=== PATIENT | male | born 1940 | race Caucasian/White ===

== ENCOUNTER → 2019-04-13 12:13 | Outpatient (CLI) | payer MEDICARE, SELFPAY ==
--- NOTE | 2019-04-13 12:17 | DI.RAD.S_ITS ---
PROCEDURE: XR CHEST 2V INDICATIONS: cough TECHNIQUE: 2 views of the chest were acquired. COMPARISON: None. FINDINGS: Surgical changes and devices: None. Lungs and pleura: Small parenchymal opacity in the right infrahilar region of the right lower lobe. Mild horizontal strandy change at the left lateral lung base. No pleural effusion or pneumothorax. Mediastinum: Mediastinal contours are normal. Heart size is normal. Bones and chest wall: No suspicious bony abnormalities. Soft tissues appear unremarkable. IMPRESSION: Findings suspicious for small right lower lobe infiltrate without effusion. Probable scarring left lateral lower left lung. Dictated by: Soraya Cadet M.D. on 04/13/2019 at 13:23 Approved by: Soraya Cadet M.D. on 04/13/2019 at 13:25
== END ==
PROVIDERS: Visit Provider Physician Assistant
DX: R05 Cough (principal)
CPT/HCPCS: 71046

== ENCOUNTER 2019-04-13 13:06 | Emergency (ER) | payer MEDICARE, SELFPAY ==
[2019-04-13] VITALS (8 sets, daily range): BP systolic 144–163; BP diastolic 72–81; PULSE 51–57; RESP 12–18; TEMP 36.3; O2SAT 94–98; BMI 31.6
[2019-04-13 13:46] LABS: Add Manual Diff / Slide Review NO; Basophils Absolute Auto 0 /uL (0-100); Basophils Percent Auto 0.7 % (0-2); Eosinophils Absolute Auto 200 /uL (0-450); Eosinophils Percent Auto 3.2 % (2-4); Hematocrit 43.5 % (41-53); Hemoglobin 14.4 g/dL (13.5-17.5); Lymphocytes Absolute Auto 1000 /uL (1100-4500); Lymphocytes Percent Auto 14.8 % (25-40); Mean Corpuscular HGB Conc 33.1 % (30-36); Mean Corpuscular Hemoglobin 31.2 PG (26-34); Mean Corpuscular Volume 94.3 fL (80-100); Monocytes Absolute Auto 1000 /uL (0-900); Monocytes Percent Auto 14.7 % (3-14); Neutrophils Absolute Auto 4300 /uL (1500-7000); Neutrophils Percent Auto 66.6 % (50-75); Platelet Count 199 X10^3/uL (150-400); Red Blood Cell Count 4.62 X10^6/uL (4.5-5.9); Red Cell Distribution Width 15.1 % (11.6-14.8); White Blood Cell Count 6.5 X10^3/uL (4.5-11.0)
[2019-04-13 13:59] LABS: Alanine Aminotransferase 42 IU/L (21-72); Albumin 3.8 g/dL (3.5-5.0); Albumin Globulin Ratio 1.3 (1.0-2.8); Alkaline Phosphatase 75 U/L (38-126); Aspartate Aminotransferase 33 IU/L (17-59); BUN Creatinine Ratio 17.5 (6-22); Bilirubin Total 1.2 mg/dL (0.2-1.3); Blood Urea Nitrogen 14 mg/dL (9-20); Carbon Dioxide 26 mmol/L (22-32); Chloride 107 mmol/L (98-107); Creatine Kinase 67 U/L (55-170); Estimated Glomerular Filt Rate > 60.0 mL/min (>60); Glucose 93 mg/dL (80-110); HEMOLYSIS < 15 (0-50); Potassium 3.8 mmol/L (3.4-5.1); Sodium 140 mmol/L (137-145); Total Protein 6.8 g/dL (6.3-8.2)
[2019-04-13 14:11] LABS: Troponin I < 0.012 ng/mL (0.01-0.034)
[2019-04-13 14:19] LABS: D Dimer 407 ng/mL (<230)
[2019-04-13] MEDS: ALBUTEROL 2.5 MG/3 ML NEB (ADULT) INH (14:23)
[2019-04-13 14:28] LABS: Lactate (Lactic Acid) 0.9 mmol/L (0.7-2.1)
[2019-04-13 14:32] LABS: B Type Natriuretic Peptide 259 (<100)
--- NOTE | 2019-04-13 15:11 | DI.US.S_ITS ---
PROCEDURE: US PERIPH VENOUS LOW EXTREM LT INDICATIONS: SWELLING, HX BLOOD CLOT TECHNIQUE: Real-time imaging, as well as color and pulse Doppler interrogation, were performed of the lower extremity deep veins from the inguinal ligament to the popliteal fossa. COMPARISON: None. FINDINGS: The common femoral, femoral and popliteal veins are normally compressible, and free of intraluminal thrombus. Color and pulse Doppler demonstrate normal phasic intraluminal flow. There is normal augmentation response to distal compression maneuver. IMPRESSION: No DVT in the left lower extremity. Dictated by: Soraya Cadet M.D. on 04/13/2019 at 16:44 Approved by: Soraya Cadet M.D. on 04/13/2019 at 16:44
--- NOTE | 2019-04-13 16:08 | ED_ITS ---
HPI - SOB/Dyspnea <ROMANA Dejesus - Last Filed: 04/13/19 18:57> General Chief Complaint: Shortness of Breath/Dyspnea Stated Complaint: Resp. distress Time Seen by Provider: 04/13/19 13:22 Source: patient and family Mode of arrival: ambulatory Limitations: no limitations History of Present Illness The patient is an 78-year-old male with history of hypertension and high cholesterol who presents with a chief complaint of shortness of breath. the patient has been complaining of progressive shortness of breath and dry cough. He states his chest hurts when he takes deep breaths or coughs. He has been traveling for the last month, has traveled to 1000 miles. He does have a history of asthma, and has been trying albuterol which has not helped. He denies any fevers nausea vomiting diarrhea. He endorses slight swelling in his left lower leg, worse than his right. He was seen at the walk-in clinic, who triaged him to the emergency department after a chest x-ray was done. He denies any constant chest pain, states it is not get worse with activity. He states he wakes up, and is gasping for air at times. states they think he might have sleep apnea. He does have history of a blood clot, which occurred after a knee surgery. Related Data Home Medications Medication Instructions Recorded Confirmed amlodipine 10 mg tablet 10 mg PO DAILY 04/13/19 04/13/19 atorvastatin 40 mg tablet 40 mg PO BEDTIME 04/13/19 04/13/19 cholecalciferol (vitamin D3) 2,000 2,000 unit PO DAILY 04/13/19 04/13/19 unit capsule dutasteride 0.5 mg capsule 0.5 mg PO DAILY 04/13/19 04/13/19 metoprolol succinate ER 200 mg 200 mg PO DAILY 04/13/19 04/13/19 tablet,extended release 24 hr omeprazole 40 mg capsule,delayed 40 mg PO DAILY 04/13/19 04/13/19 release Previous Rx's Medication Instructions Recorded doxycycline hyclate 100 mg PO BID #20 cap 04/13/19 Allergies Allergy/AdvReac Type Severity Reaction Status Date / Time No Known Drug Allergies Allergy Verified 04/13/19 13:21 Review of Systems <ROMANA Dejesus - Last Filed: 04/13/19 18:57> Review of Systems GENERAL: Denies chills, fatigue, malaise, fever, sweats. HEENT: Denies sinus pain, ear pain, sore throat, difficulty swallowing, dizziness. RESPIRATORY: See HPI CARDIOVASCULAR: Denies chest pain, palpitations, orthopnea, edema, GASTROINTESTINAL: See HPI : Denies dysuria, frequency, incontinence, hematuria, urinary retention. MUSCULOSKELETAL: See HPI SKIN: Denies rash, skin lesions, or other NEUROLOGIC: Denies weakness, headache, numbness, change in speech, confusion, seizures, incoordination. PSYCHIATRIC: No concerning psychosocial issues. 12 point review of systems is negative except for those stated above PFSH <ROMANA Dejesus - Last Filed: 04/13/19 18:57> Medical History (Updated 04/13/19 @ 18:50 by ROMANA Dejesus) Hypertension (Acute) Social History Smoking Status: Smoker, status unknown Social History Smoking Status: Smoker, status unknown Exam <ROMANA Dejesus - Last Filed: 04/13/19 18:57> Narrative Exam Narrative: GENERAL: This is a well-nourished, well-developed patient, no acute distress HEAD: Atraumatic. Normocephalic. No temporal or scalp tenderness. EYES: Pupils equal round and reactive. Extraocular motions intact. No scleral icterus. No injection or drainage. ENT: Nose without bleeding, purulent drainage or septal hematoma. Throat without erythema, tonsillar hypertrophy or exudate. Uvula midline. Airway patent. NECK: Trachea midline. No JVD or lymphadenopathy. Supple, nontender, no meningeal signs. CARDIOVASCULAR: Regular rate and rhythm without murmurs, gallops, or rubs. RESPIRATORY: Breath sounds equal bilaterally. No rales, or rhonchi. Slight wh eeze expiratory bilaterally on exam. Cough noted on exam. GASTROINTESTINAL: Abdomen soft, non-tender, nondistended. No hepato- splenomegaly, or palpable masses. No guarding. EXTREMITIES: No clubbing, cyanosis, or edema. No joint tenderness, effusion. Slight pedal edema noted bilaterally, left worse than right BACK: Nontender without deformity or crepitance. No flank tenderness. NEURO: AOx3. No gross cranial nerve deficit. Stable gait. Strength is equal upper and lower extremities bilaterally. SKIN: No rash or erythema. Initial Vital Signs Initial Vital Signs: Vital Signs Temperature 97.3 F L 04/13/19 13:21 Pulse Rate 53 L 04/13/19 13:21 Respiratory Rate 13 04/13/19 13:21 Blood Pressure 149/80 H 04/13/19 13:21 Pulse Oximetry 96 04/13/19 13:21 <Britney Harvey DO - Last Filed: 04/15/19 07:53> Initial Vital Signs Initial Vital Signs: Vital Signs Temperature 97.3 F L 04/13/19 13:21 Pulse Rate 53 L 04/13/19 13:21 Respiratory Rate 13 04/13/19 13:21 Blood Pressure 149/80 H 04/13/19 13:21 Pulse Oximetry 96 04/13/19 13:21 Course <IBETH DejesusBC - Last Filed: 04/13/19 18:57> Orders Ordered: Discontinued Medications Albuterol (Ventolin) 2.5 mg INH NOW ONE Stop: 04/13/19 14:22 Last Admin: 04/13/19 14:23 Dose: 2.5 mg Vital Signs - 8 hr 04/13/19 13:21 04/13/19 14:23 04/13/19 14:54 Temperature 97.3 F L Pulse Rate 53 L 51 L 57 L Respiratory Rate 13 12 16 Blood Pressure 149/80 H Blood Pressure [Left Arm] 144/77 H Pulse Oximetry 96 97 95 04/13/19 15:00 04/13/19 15:30 04/13/19 15:55 Temperature Pulse Rate 57 L 57 L 55 L Respiratory Rate 15 17 15 Blood Pressure Blood Pressure [Left Arm] 147/72 H 153/75 H 154/81 H Pulse Oximetry 97 94 95 04/13/19 16:25 04/13/19 17:00 Temperature Pulse Rate 56 L 55 L Respiratory Rate 15 18 Blood Pressure Blood Pressure [Left Arm] 163/75 H 154/73 H Pulse Oximetry 95 98 <DO Geetha Braun Last Filed: 04/15/19 07:53> Orders Ordered: Discontinued Medications Albuterol (Ventolin) 2.5 mg INH NOW ONE Stop: 04/13/19 14:22 Last Admin: 04/13/19 14:23 Dose: 2.5 mg Vital Signs - 8 hr 04/13/19 13:21 04/13/19 14:23 04/13/19 14:54 Temperature 97.3 F L Pulse Rate 53 L 51 L 57 L Respiratory Rate 13 12 16 Blood Pressure 149/80 H Blood Pressure [Left Arm] 144/77 H Pulse Oximetry 96 97 95 04/13/19 15:00 04/13/19 15:30 04/13/19 15:55 Temperature Pulse Rate 57 L 57 L 55 L Respiratory Rate 15 17 15 Blood Pressure Blood Pressure [Left Arm] 147/72 H 153/75 H 154/81 H Pulse Oximetry 97 94 95 04/13/19 16:25 04/13/19 17:00 Temperature Pulse Rate 56 L 55 L Respiratory Rate 15 18 Blood Pressure Blood Pressure [Left Arm] 163/75 H 154/73 H Pulse Oximetry 95 98 MDM - SOB/Dyspnea <ROMANA Dejesus - Last Filed: 04/13/19 18:57> Lab Data Result diagrams: 04/13/19 13:30 04/13/19 13:30 Lab Results 04/13/19 04/13/19 04/13/19 Range/Units 13:30 13:30 13:30 WBC 6.5 (4.5-11.0) X10^3/uL RBC 4.62 (4.5-5.9) X10^6/uL Hgb 14.4 (13.5-17.5) g/dL Hct 43.5 (41-53) % MCV 94.3 (80-100) fL MCH 31.2 (26-34) PG MCHC 33.1 (30-36) % RDW 15.1 H (11.6-14.8) % Plt Count 199 (150-400) X10^3/uL Neut % (Auto) 66.6 (50-75) % Lymph % (Auto) 14.8 L (25-40) % [place] % (Auto) 14.7 H (3-14) % Eos % (Auto) 3.2 (2-4) % Baso % (Auto) 0.7 (0-2) % Neut # (Auto) 4300 (1117-3964) /uL Lymph # (Auto) 1000 L (0062-6305) /uL [place] # (Auto) 1000 H (0-900) /uL Eos # (Auto) 200 (0-450) /uL Baso # (Auto) 0 (0-100) /uL D-Dimer (<230) ng/mL Sodium 140 (137-145) mmol/L Potassium 3.8 (3.4-5.1) mmol/L Chloride 107 (98-107) mmol/L Carbon Dioxide 26 (22-32) mmol/L BUN 14 (9-20) mg/dL Creatinine 0.80 (0.66-1.25) mg/dL Estimated GFR > 60.0 (>60) mL/min BUN/Creatinine Ratio 17.5 (6-22) Glucose 93 (80-110) mg/dL Lactate (0.7-2.1) mmol/L Calcium 9.0 (8.4-10.2) mg/dL Total Bilirubin 1.2 (0.2-1.3) mg/dL AST 33 (17-59) IU/L ALT 42 (21-72) IU/L Alkaline Phosphatase 75 (38-126) U/L Total Creatine Kinase 67 (55-170) U/L CK-MB (CK-2) TNP CK-MB (CK-2) Rel Index TNP Troponin I < 0.012 (0.01-0.034) ng/mL B-Natriuretic Peptide (<100) Total Protein 6.8 (6.3-8.2) g/dL Albumin 3.8 (3.5-5.0) g/dL Globulin 3.0 (1.7-4.1) g/dL Albumin/Globulin Ratio 1.3 (1.0-2.8) 04/13/19 04/13/19 04/13/19 Range/Units 13:30 13:30 13:57 WBC (4.5-11.0) X10^3/uL RBC (4.5-5.9) X10^6/uL Hgb (13.5-17.5) g/dL Hct (41-53) % MCV (80-100) fL MCH (26-34) PG MCHC (30-36) % RDW (11.6-14.8) % Plt Count (150-400) X10^3/uL Neut % (Auto) (50-75) % Lymph % (Auto) (25-40) % [place] % (Auto) (3-14) % Eos % (Auto) (2-4) % Baso % (Auto) (0-2) % Neut # (Auto) (5334-6582) /uL Lymph # (Auto) (2842-1207) /uL [place] # (Auto) (0-900) /uL Eos # (Auto) (0-450) /uL Baso # (Auto) (0-100) /uL D-Dimer 407 H (<230) ng/mL Sodium (137-145) mmol/L Potassium (3.4-5.1) mmol/L Chloride (98-107) mmol/L Carbon Dioxide (22-32) mmol/L BUN (9-20) mg/dL Creatinine (0.66-1.25) mg/dL Estimated GFR (>60) mL/min BUN/Creatinine Ratio (6-22) Glucose (80-110) mg/dL Lactate 0.9 (0.7-2.1) mmol/L Calcium (8.4-10.2) mg/dL Total Bilirubin (0.2-1.3) mg/dL AST (17-59) IU/L ALT (21-72) IU/L Alkaline Phosphatase (38-126) U/L Total Creatine Kinase (55-170) U/L CK-MB (CK-2) CK-MB (CK-2) Rel Index Troponin I (0.01-0.034) ng/mL B-Natriuretic Peptide 259 H (<100) Total Protein (6.3-8.2) g/dL Albumin (3.5-5.0) g/dL Globulin (1.7-4.1) g/dL Albumin/Globulin Ratio (1.0-2.8) 04/13/19 Range/Units 16:07 WBC (4.5-11.0) X10^3/uL RBC (4.5-5.9) X10^6/uL Hgb (13.5-17.5) g/dL Hct (41-53) % MCV (80-100) fL MCH (26-34) PG MCHC (30-36) % RDW (11.6-14.8) % Plt Count (150-400) X10^3/uL Neut % (Auto) (50-75) % Lymph % (Auto) (25-40) % [place] % (Auto) (3-14) % Eos % (Auto) (2-4) % Baso % (Auto) (0-2) % Neut # (Auto) (9812-2105) /uL Lymph # (Auto) (6568-8348) /uL [place] # (Auto) (0-900) /uL Eos # (Auto) (0-450) /uL Baso # (Auto) (0-100) /uL D-Dimer (<230) ng/mL Sodium (137-145) mmol/L Potassium (3.4-5.1) mmol/L Chloride (98-107) mmol/L Carbon Dioxide (22-32) mmol/L BUN (9-20) mg/dL Creatinine (0.66-1.25) mg/dL Estimated GFR (>60) mL/min BUN/Creatinine Ratio (6-22) Glucose (80-110) mg/dL Lactate (0.7-2.1) mmol/L Calcium (8.4-10.2) mg/dL Total Bilirubin (0.2-1.3) mg/dL AST (17-59) IU/L ALT (21-72) IU/L Alkaline Phosphatase (38-126) U/L Total Creatine Kinase 70 (55-170) U/L CK-MB (CK-2) TNP CK-MB (CK-2) Rel Index TNP Troponin I < 0.012 (0.01-0.034) ng/mL B-Natriuretic Peptide (<100) Total Protein (6.3-8.2) g/dL Albumin (3.5-5.0) g/dL Globulin (1.7-4.1) g/dL Albumin/Globulin Ratio (1.0-2.8) Imaging Data Chest x-ray: Radiologist's impression: Ricardo Austin 78 M [address] [address] XRay Report Signed Patient: KristaCirilo huangneth AMR#: [id number] : [id number] Age/Sex: 78 / MDate of Service: 04/13/19 Loc: RAD Accession Number: [id number] Procedure: XR chest 2V Ordering Provider: Angy Estrada P.A-C PROCEDURE: XR CHEST 2V INDICATIONS: cough TECHNIQUE: 2 views of the chest were acquired. COMPARISON: None. FINDINGS: Surgical changes and devices: None. Lungs and pleura: Small parenchymal opacity in the right infrahilar region of the right lower lobe. Mild horizontal strandy change at the left lateral lung base. No pleural effusion or pneumothorax. Mediastinum: Mediastinal contours are normal. Heart size is normal. Bones and chest wall: No suspicious bony abnormalities. Soft tissues appear unremarkable. IMPRESSION: Findings suspicious for small right lower lobe infiltrate without effusion. Probable scarring left lateral lower left lung. Dictated by: Soraya Cadet M.D. on 04/13/2019 at 13:23 Approved by: Soraya Cadet M.D. on 04/13/2019 at 13:25 Venous US: Radiologist's impression: Ricardo Austin 78 M 1940 [place] [address] Ultrasound Report Signed Patient: Ricardo Austin AMR#: [id number] : [id number] Age/Sex: 78 / MDate of Service: 04/13/19 Loc: ED Accession Number: [id number] Procedure: US periph venous low extrem lt Ordering Provider: Britney Braswell PROCEDURE: US PERIPH VENOUS LOW EXTREM LT INDICATIONS: SWELLING, HX BLOOD CLOT TECHNIQUE: Real-time imaging, as well as color and pulse Doppler interrogation, were performed of the lower extremity deep veins from the inguinal ligament to the popliteal fossa. COMPARISON: None. FINDINGS: The common femoral, femoral and popliteal veins are normally compressible, and free of intraluminal thrombus. Color and pulse Doppler demonstrate normal phasic intraluminal flow. There is normal augmentation response to distal compression maneuver. IMPRESSION: No DVT in the left lower extremity. Dictated by: Soraya Cadet M.D. on 04/13/2019 at 16:44 Approved by: Soraya Cadet M.D. on 04/13/2019 at 16:44 ECG Data Attestation: I personally reviewed and interpreted this ECG as follows: Interpretation: Sinus bradycardia. Ventricular rate 54. No ectopy noted. No ST elevation or depression . Viewed by Dr Harvey 13:54 MDM Narrative Medical decision making narrative: The patient is an 78-year-old male who presents with chief complaint of shortness of breath. He has 2 negative troponins. He has a chest x-ray illustrated pneumonia in his right lower lobe. He has slightly increased swelling in his left leg, but a negative ultrasound for DVT. I did offer to do a CTPA for a PE, but the patient declined as his D- dimer is normal when corrected for age, he is not hypoxic, not tachycardic and has a negative venous ultrasound. I discussed at length follow up with primary care provider. The patient received a nebulizer as well as spacer teaching in the emergency department. Discussed at length return precautions to the ER including chest pain, shortness of breath or acute concerns. Patient have no questions or concerns upon discharge. <Britney Harvey, DO - Last Filed: 04/15/19 07:53> Lab Data Lab Results 04/13/19 04/13/19 04/13/19 Range/Units 13:30 13:30 13:30 WBC 6.5 (4.5-11.0) X10^3/uL RBC 4.62 (4.5-5.9) X10^6/uL Hgb 14.4 (13.5-17.5) g/dL Hct 43.5 (41-53) % MCV 94.3 (80-100) fL MCH 31.2 (26-34) PG MCHC 33.1 (30-36) % RDW 15.1 H (11.6-14.8) % Plt Count 199 (150-400) X10^3/uL Neut % (Auto) 66.6 (50-75) % Lymph % (Auto) 14.8 L (25-40) % [place] % (Auto) 14.7 H (3-14) % Eos % (Auto) 3.2 (2-4) % Baso % (Auto) 0.7 (0-2) % Neut # (Auto) 4300 (2323-7879) /uL Lymph # (Auto) 1000 L (9664-9855) /uL [place] # (Auto) 1000 H (0-900) /uL Eos # (Auto) 200 (0-450) /uL Baso # (Auto) 0 (0-100) /uL D-Dimer (<230) ng/mL Sodium 140 (137-145) mmol/L Potassium 3.8 (3.4-5.1) mmol/L Chloride 107 (98-107) mmol/L Carbon Dioxide 26 (22-32) mmol/L BUN 14 (9-20) mg/dL Creatinine 0.80 (0.66-1.25) mg/dL Estimated GFR > 60.0 (>60) mL/min BUN/Creatinine Ratio 17.5 (6-22) Glucose 93 (80-110) mg/dL Lactate (0.7-2.1) mmol/L Calcium 9.0 (8.4-10.2) mg/dL Total Bilirubin 1.2 (0.2-1.3) mg/dL AST 33 (17-59) IU/L ALT 42 (21-72) IU/L Alkaline Phosphatase 75 (38-126) U/L Total Creatine Kinase 67 (55-170) U/L CK-MB (CK-2) TNP CK-MB (CK-2) Rel Index TNP Troponin I < 0.012 (0.01-0.034) ng/mL B-Natriuretic Peptide (<100) Total Protein 6.8 (6.3-8.2) g/dL Albumin 3.8 (3.5-5.0) g/dL Globulin 3.0 (1.7-4.1) g/dL Albumin/Globulin Ratio 1.3 (1.0-2.8) 04/13/19 04/13/19 04/13/19 Range/Units 13:30 13:30 13:57 WBC (4.5-11.0) X10^3/uL RBC (4.5-5.9) X10^6/uL Hgb (13.5-17.5) g/dL Hct (41-53) % MCV (80-100) fL MCH (26-34) PG MCHC (30-36) % RDW (11.6-14.8) % Plt Count (150-400) X10^3/uL Neut % (Auto) (50-75) % Lymph % (Auto) (25-40) % [place] % (Auto) (3-14) % Eos % (Auto) (2-4) % Baso % (Auto) (0-2) % Neut # (Auto) (3533-5693) /uL Lymph # (Auto) (4936-8154) /uL [place] # (Auto) (0-900) /uL Eos # (Auto) (0-450) /uL Baso # (Auto) (0-100) /uL D-Dimer 407 H (<230) ng/mL Sodium (137-145) mmol/L Potassium (3.4-5.1) mmol/L Chloride (98-107) mmol/L Carbon Dioxide (22-32) mmol/L BUN (9-20) mg/dL Creatinine (0.66-1.25) mg/dL Estimated GFR (>60) mL/min BUN/Creatinine Ratio (6-22) Glucose (80-110) mg/dL Lactate 0.9 (0.7-2.1) mmol/L Calcium (8.4-10.2) mg/dL Total Bilirubin (0.2-1.3) mg/dL AST (17-59) IU/L ALT (21-72) IU/L Alkaline Phosphatase (38-126) U/L Total Creatine Kinase (55-170) U/L CK-MB (CK-2) CK-MB (CK-2) Rel Index Troponin I (0.01-0.034) ng/mL B-Natriuretic Peptide 259 H (<100) Total Protein (6.3-8.2) g/dL Albumin (3.5-5.0) g/dL Globulin (1.7-4.1) g/dL Albumin/Globulin Ratio (1.0-2.8) 04/13/19 Range/Units 16:07 WBC (4.5-11.0) X10^3/uL RBC (4.5-5.9) X10^6/uL Hgb (13.5-17.5) g/dL Hct (41-53) % MCV (80-100) fL MCH (26-34) PG MCHC (30-36) % RDW (11.6-14.8) % Plt Count (150-400) X10^3/uL Neut % (Auto) (50-75) % Lymph % (Auto) (25-40) % [place] % (Auto) (3-14) % Eos % (Auto) (2-4) % Baso % (Auto) (0-2) % Neut # (Auto) (0402-0906) /uL Lymph # (Auto) (0215-1443) /uL [place] # (Auto) (0-900) /uL Eos # (Auto) (0-450) /uL Baso # (Auto) (0-100) /uL D-Dimer (<230) ng/mL Sodium (137-145) mmol/L Potassium (3.4-5.1) mmol/L Chloride (98-107) mmol/L Carbon Dioxide (22-32) mmol/L BUN (9-20) mg/dL Creatinine (0.66-1.25) mg/dL Estimated GFR (>60) mL/min BUN/Creatinine Ratio (6-22) Glucose (80-110) mg/dL Lactate (0.7-2.1) mmol/L Calcium (8.4-10.2) mg/dL Total Bilirubin (0.2-1.3) mg/dL AST (17-59) IU/L ALT (21-72) IU/L Alkaline Phosphatase (38-126) U/L Total Creatine Kinase 70 (55-170) U/L CK-MB (CK-2) TNP CK-MB (CK-2) Rel Index TNP Troponin I < 0.012 (0.01-0.034) ng/mL B-Natriuretic Peptide (<100) Total Protein (6.3-8.2) g/dL Albumin (3.5-5.0) g/dL Globulin (1.7-4.1) g/dL Albumin/Globulin Ratio (1.0-2.8) Discharge Plan Departure Patient Disposition: Home Clinical Impression: Community acquired pneumonia Qualifiers: Laterality: right Lung location: lower lobe of lung Qualified Code(s): J18.1 - Lobar pneumonia, unspecified organism Discharge Date/Time: 04/13/19 17:15 Interventions: ED Discharge Assessment Last Done: 04/13/19 17:17 Instructions: DI for Pneumonia -- Adult, DI for Cough -- Adult Activity Restrictions/Additional Instructions: Your x-ray shows pneumonia. I am starting you on an antibiotic. I suggest you continue use of your albuterol inhaler. Please follow up with primary care provider soon as possible. Please come back to the emergency department for any acute concerns such as terrence st pain, shortness of breath etc. Otherwise your ultrasound shows no clot. You have had 2 sets of normal cardiac enzymes. I have given you a note. Please come back to the emergency department for any acute concerns. Prescriptions: New doxycycline hyclate 100 mg capsule 100 mg PO BID Qty: 20 RF: 0 No Action amlodipine 10 mg tablet 10 mg PO DAILY RF: 0 atorvastatin 40 mg tablet 40 mg PO BEDTIME RF: 0 dutasteride [Avodart] 0.5 mg capsule 0.5 mg PO DAILY RF: 0 metoprolol succinate 200 mg tablet extended release 24 hr 200 mg PO DAILY RF: 0 omeprazole 40 mg capsule,delayed release(DR/EC) 40 mg PO DAILY RF: 0 cholecalciferol (vitamin D3) 2,000 unit capsule 2,000 unit PO DAILY RF: 0 Referrals: Rubina Obrien ARNP [[employer]] - Stand Alone Forms: Work Release Note <Britney Harvey DO - Last Filed: 04/15/19 07:53> Cosign ED Attending Cosignature Attestation: I was immediately available in the department for consultation. This documentation has been reviewed and I agree with assessment and plan. Supervised by Britney Harvey DO
[2019-04-13 16:30] LABS: Creatine Kinase 70 U/L (55-170)
[2019-04-13 16:43] LABS: Troponin I < 0.012 ng/mL (0.01-0.034)
== END 2019-04-13 17:15 | disposition home or self-care (01) ==
PROVIDERS: Emergency Medicine; Emergency Provider Nurse Practitioner Family
DX: J18.1 Lobar pneumonia, unspecified organism (principal); R06.03 Acute respiratory distress; R07.89 Other chest pain; R05 Cough
CPT/HCPCS: 36415; 36591; 71046; 80053; 82550; 83605; 83880; 84484; 85025; 85379; 93005; 93971; 94150; 94640; 99283; 99285; J7613

== ENCOUNTER → 2020-02-12 08:17 | Outpatient (CLI) | payer MEDICARE, SELFPAY ==
[2020-02-12 09:25] LABS: Alanine Aminotransferase 45 IU/L (<50); Albumin 4.2 g/dL (3.5-5.0); Albumin Globulin Ratio 1.4 (1.0-2.8); Alkaline Phosphatase 78 U/L (38-126); Aspartate Aminotransferase 31 IU/L (17-59); BUN Creatinine Ratio 14.7 (6-22); Bilirubin Total 1.2 mg/dL (0.2-1.3); Blood Urea Nitrogen 14 mg/dL (9-20); Calcium 9.4 mg/dL (8.4-10.2); Carbon Dioxide 29 mmol/L (22-32); Chloride 101 mmol/L (98-107); Estimated Glomerular Filt Rate > 60.0 mL/min (>60); Globulin 3.1 g/dL (1.7-4.1); Glucose 93 mg/dL (80-110); HEMOLYSIS < 15 (0-50); Magnesium 1.6 mg/dL (1.6-2.3); Sodium 138 mmol/L (137-145); Total Protein 7.3 g/dL (6.3-8.2)
[2020-02-12 09:33] LABS: NT-proBNP (BNP-Adult 18+) 2670 pg/mL (<450)
== END ==
PROVIDERS: Referring Provider Nurse Practitioner; Visit Provider Nurse Practitioner
DX: I10 Essential (primary) hypertension (principal); E78.00 Pure hypercholesterolemia, unspecified; I50.9 Heart failure, unspecified
CPT/HCPCS: 36415; 80053; 83735; 83880

== ENCOUNTER → 2020-02-14 08:59 | Outpatient (CLI) | payer MEDICARE, SELFPAY ==
--- NOTE | 2020-02-14 09:02 | DI.ECHO.S_ITS ---
[facility]---------+ [facility] +---------+ : : [address] : [address] : : : : [id number] : : : : Phone: [phone]+ Echocardiogram Report + + :Name: HELADIO MARQUEZ Study Date: 02/14/2020 Height: 69 in : :[facility] Weight: 226 lb : : Gender: Male BSA: 2.2 m2 : :: 1940 Age: 79 yrs BP: 120/82 mmHg: :Reason For Study: Atrial Fibrillation : : Performed By: Frida Garrett : :Referring: HARPREET RODNEY : + + Interpretation Summary The patient was in atrial fibrillation with heart rates between 57-69 bpm during the exam. Normal left ventricle size with ejection fraction 60-65%. Moderate to severely dilated right ventricle with normal right ventricular systolic function. Severely dilated both atria. The aortic valve is mildly calcified. Mild mitral annular calcification. Mild to moderate mitral regurgitation. Moderate tricuspid regurgitation. The right ventricular systolic pressure is estimated to be at least 34 mmHg based on an estimated right atrial pressure of 8 mm Hg. Procedure: A two-dimensional transthoracic echocardiogram with color flow and Doppler was performed. The study quality was technically adequate. A contrast injection of Definity was performed to improve assessment of LV function. Contrast was injected into an intravenous site in the right arm. Definity contrast used after patient education and consent. Patient denied any symptoms after the use of Definty contrast. The patient was in atrial fibrillation with heart rates between 57-69 bpm during the exam. Left Ventricle: Left ventricular wall thickness is normal. The left ventricle is normal in size. The ejection fraction is estimated to be 60-65%. There are no obvious focal wall motion abnormalities noted but poor endocardial definition reduces the sensitivity for the detection of such. Diastolic function could not be accurately assessed due to atrial fibrillation. Right Ventricle: The right ventricle is moderate to severely dilated. The right ventricular systolic function is normal. Atria: Both atria are severely dilated. There is no Doppler evidence for an interatrial shunt. Mitral Valve: The mitral valve leaflets appear mildly thickened, but open well. There is mild mitral annular calcification. There is mild to moderate mitral regurgitation. Aortic Valve: The aortic valve is trileaflet. The aortic valve opens well. The aortic valve is mildly calcified. There is no aortic valve stenosis. No aortic regurgitation is present. Tricuspid Valve: The tricuspid valve is normal in structure but is abnormal in function. There is moderate tricuspid regurgitation. The right ventricular systolic pressure is estimated to be at least 34 mmHg based on an estimated right atrial pressure of 8 mm Hg. Pulmonic Valve: The pulmonic valve is not well visualized. There is moderate to severe pulmonic regurgitation. Great Vessels: The aortic root is mildly dilated. The ascending aorta could not be visualized. The IVC is dilated (diameter is greater than 2.1 cm) yet it collapses greater than 50% with a sniff. This suggests a right atrial pressure of 8 mm Hg. Pericardium/ Pleura There is no pericardial effusion. There is no pleural effusion. MMode/2D Measurements & Calculations LVIDd: 4.9 cm LVOT diam: 2.2 cm LVIDs: 3.7 cm Ao root diam: 3.9 cm FS: 24.8 % EPSS: 0.42 cm IVSd: 0.89 cm LVPWd: 0.80 cm LV neely. diameter/BSA (cm/m^2): 2.2 LV sys. diameter/BSA (cm/m^2): 1.7 LA A2 area: 33.1 cm2 RA long axis: 7.6 cm LA A4 area: 27.0 cm2 RA area: 32.3 cm2 LA length (vol): 6.8 cm RA vol: 116.3 ml LA vol: 110.9 ml RA : 53.5 ml/m2 LA vol index: 51.0 ml/m2 IVC diam: 2.9 cm RVD1 (basal): 5.2 cm TAPSE: 1.9 cm Doppler Measurements & Calculations Ao V2 max: 150.5 cm/sec LVOT Max Jesus: 74.8 cm/sec Ao V2 mean: 102.9 cm/sec LV V1 max P.2 mmHg Ao max P.1 mmHg LV V1 VTI: 14.1 cm Ao mean P.8 mmHg RADHA(I,D): 1.8 cm2 Ao V2 VTI: 29.1 cm RADHA(V,D): 1.9 cm2 sev ratio: 0.48 RADHA indexed to BSA (cm^2/m^2): 0.84 MV E max jesus: 92.3 cm/sec TR max jesus: 255.6 cm/sec MV A max jesus: 0.91 cm/sec TR max P.1 mmHg MV E/A: 101.4 PA V2 max: 93.3 cm/sec Med Peak E' Jesus: 8.0 cm/sec PA V2 mean: 61.1 cm/sec E/E' med: 11.5 PA mean P.7 mmHg Lat Peak E' Jesus: 13.4 cm/sec PA pr(Accel): 29.2 mmHg E/E' lat: 6.9 PA Accel Time: 0.09 sec E/e' average: 9.2 MV dec time: 0.18 sec MV P1/2t: 53.1 msec MV P1/2t max jesus: 90.5 cm/sec SV(LVOT): 53.4 ml MVA(P1/2t): 4.1 cm2 Electronically signed by: Jacques Patel on Reading Physician:02/14/2020 02:29 PM
== END ==
PROVIDERS: PCP Nurse Practitioner; Referring Provider Nurse Practitioner; Visit Provider Nurse Practitioner
DX: I08.1 Rheumatic disorders of both mitral and tricuspid valves (principal); I48.91 Unspecified atrial fibrillation; I50.9 Heart failure, unspecified; I77.810 Thoracic aortic ectasia
CPT/HCPCS: C8929; Q9957

== ENCOUNTER → 2020-02-18 09:41 | Outpatient (CLI) | payer MEDICARE, SELFPAY ==
[2020-02-18 11:36] LABS: BUN Creatinine Ratio 18.4 (6-22); Blood Urea Nitrogen 21 mg/dL (9-20); Calcium 9.4 mg/dL (8.4-10.2); Carbon Dioxide 28 mmol/L (22-32); Chloride 99 mmol/L (98-107); Estimated Glomerular Filt Rate > 60.0 mL/min (>60); Glucose 97 mg/dL (80-110); HEMOLYSIS < 15 (0-50); Magnesium 1.6 mg/dL (1.6-2.3); Potassium 4.9 mmol/L (3.4-5.1); Sodium 136 mmol/L (137-145)
== END ==
PROVIDERS: PCP Nurse Practitioner; Referring Provider Nurse Practitioner; Visit Provider Nurse Practitioner
DX: Z51.81 Encounter for therapeutic drug level monitoring (principal); I10 Essential (primary) hypertension; I48.91 Unspecified atrial fibrillation; R60.0 Localized edema; Z79.899 Other long term (current) drug therapy
CPT/HCPCS: 36415; 80048; 83735

== ENCOUNTER → 2020-04-07 09:28 | Outpatient (CLI) | payer MEDICARE, SELFPAY ==
[2020-04-07 11:54] LABS: Alanine Aminotransferase 36 IU/L (<50); Albumin 3.9 g/dL (3.5-5.0); Albumin Globulin Ratio 1.4 (1.0-2.8); Alkaline Phosphatase 71 U/L (38-126); Aspartate Aminotransferase 34 IU/L (17-59); BUN Creatinine Ratio 11.7 (6-22); Bilirubin Total 0.6 mg/dL (0.2-1.3); Blood Urea Nitrogen 12 mg/dL (9-20); Calcium 9.1 mg/dL (8.4-10.2); Carbon Dioxide 26 mmol/L (22-32); Chloride 100 mmol/L (98-107); Cholesterol 157 mg/dL (140-199); Estimated Glomerular Filt Rate > 60.0 mL/min (>60); Globulin 2.8 g/dL (1.7-4.1); Glucose 89 mg/dL (80-110); HDL Cholesterol 66 mg/dL (40-60); HEMOLYSIS < 15 (0-50); LDL Cholesterol Calculated 78 mg/dL (<100); Potassium 4.4 mmol/L (3.4-5.1); Sodium 136 mmol/L (137-145); Total Protein 6.7 g/dL (6.3-8.2); Triglycerides 63 mg/dL (35-150)
[2020-04-07 11:55] LABS: Microalbumi Creatinin Ratio Ur 46.6 ug/mg CR (<30); Microalbumin Urine Random 3.5 mg/dL (0-1.6)
== END ==
PROVIDERS: PCP Nurse Practitioner; Referring Provider Nurse Practitioner; Visit Provider Nurse Practitioner
DX: E78.00 Pure hypercholesterolemia, unspecified (principal); I10 Essential (primary) hypertension
CPT/HCPCS: 36415; 80053; 80061; 82043; 82570

== ENCOUNTER → 2020-05-29 10:30 | Outpatient (CLI) | payer MEDICARE, SELFPAY ==
[2020-05-29 11:14] LABS: Add Manual Diff / Slide Review NO; Basophils Absolute Auto 0 /uL (0-100); Eosinophils Absolute Auto 100 /uL (0-450); Hematocrit 41.4 % (41-53); Hemoglobin 13.7 g/dL (13.5-17.5); Lymphocytes Absolute Auto 800 /uL (1100-4500); Lymphocytes Percent Auto 16.2 % (25-40); Mean Corpuscular HGB Conc 33.1 % (30-36); Mean Corpuscular Hemoglobin 31.8 PG (26-34); Mean Corpuscular Volume 95.9 fL (80-100); Monocytes Absolute Auto 800 /uL (0-900); Monocytes Percent Auto 17.2 % (3-14); Neutrophils Absolute Auto 3100 /uL (1500-7000); Neutrophils Percent Auto 62.6 % (50-75); Platelet Count 154 X10^3/uL (150-400); Red Blood Cell Count 4.32 X10^6/uL (4.5-5.9); Red Cell Distribution Width 15.1 % (11.6-14.8); White Blood Cell Count 4.9 X10^3/uL (4.5-11.0)
[2020-05-29 11:31] LABS: BUN Creatinine Ratio 16.5 (6-22); Blood Urea Nitrogen 17 mg/dL (9-20); Calcium 9.6 mg/dL (8.4-10.2); Carbon Dioxide 27 mmol/L (22-32); Chloride 102 mmol/L (98-107); Cholesterol 166 mg/dL (140-199); Estimated Glomerular Filt Rate > 60.0 mL/min (>60); Glucose 105 mg/dL (80-110); HDL Cholesterol 67 mg/dL (40-60); HEMOLYSIS < 15 (0-50); LDL Cholesterol Calculated 85 mg/dL (<100); Potassium 4.9 mmol/L (3.4-5.1); Sodium 135 mmol/L (137-145); Triglycerides 70 mg/dL (35-150)
== END ==
PROVIDERS: Internal Medicine Cardiovascular Disease; PCP Nurse Practitioner; Referring Provider Nurse Practitioner; Visit Provider Nurse Practitioner
DX: I48.19 Other persistent atrial fibrillation (principal); E78.5 Hyperlipidemia, unspecified
CPT/HCPCS: 36415; 80048; 80061; 85025

== ENCOUNTER → 2020-09-01 10:29 | Outpatient (CLI) | payer MEDICARE, SELFPAY ==
[2020-09-01 11:52] LABS: Creatinine Urine Random 61.7 mg/dL
[2020-09-01 11:59] LABS: Microalbumi Creatinin Ratio Ur 29.1 ug/mg CR (<30); Microalbumin Urine Random 1.8 mg/dL (0-1.6)
[2020-09-01 12:52] LABS: Alanine Aminotransferase 32 IU/L (<50); Albumin 4.4 g/dL (3.5-5.0); Albumin Globulin Ratio 1.3 (1.0-2.8); Alkaline Phosphatase 77 U/L (38-126); Aspartate Aminotransferase 33 IU/L (17-59); BUN Creatinine Ratio 20.2 (6-22); Blood Urea Nitrogen 20 mg/dL (9-20); Calcium 9.7 mg/dL (8.4-10.2); Carbon Dioxide 30 mmol/L (22-32); Chloride 102 mmol/L (98-107); Estimated Glomerular Filt Rate > 60.0 mL/min (>60); Globulin 3.3 g/dL (1.7-4.1); Glucose 89 mg/dL (80-110); HEMOLYSIS < 15 (0-50); Magnesium 1.8 mg/dL (1.6-2.3); Potassium 4.8 mmol/L (3.4-5.1); Sodium 137 mmol/L (137-145); Total Protein 7.7 g/dL (6.3-8.2)
[2020-09-01 13:03] LABS: Free T3, Triiodothyronine Free 2.74 pg/mL (2.77-5.27); Free T4, Direct Thyroxine 1.11 ng/dL (0.78-2.19)
[2020-09-01 13:17] LABS: Thyroid Stimulating Hormone 2.57 uIU/mL (0.47-4.68)
== END ==
PROVIDERS: PCP Nurse Practitioner; Referring Provider Nurse Practitioner; Visit Provider Nurse Practitioner
DX: E78.5 Hyperlipidemia, unspecified (principal); I10 Essential (primary) hypertension; I48.91 Unspecified atrial fibrillation; T50.1X5A Adverse effect of loop [high-ceiling] diuretics, initial encounter; Z79.01 Long term (current) use of anticoagulants; Z79.899 Other long term (current) drug therapy
CPT/HCPCS: 36415; 80053; 82043; 82570; 83735; 84439; 84443; 84481

== ENCOUNTER → 2020-09-20 10:14 | Outpatient (CLI) | payer MEDICARE, SELFPAY ==
[2020-09-20 12:53] LABS: Alanine Aminotransferase 32 IU/L (<50); Albumin 4.3 g/dL (3.5-5.0); Albumin Globulin Ratio 1.3 (1.0-2.8); Alkaline Phosphatase 79 U/L (38-126); Aspartate Aminotransferase 31 IU/L (17-59); BUN Creatinine Ratio 18.4 (6-22); Bilirubin Total 1.5 mg/dL (0.2-1.3); Blood Urea Nitrogen 19 mg/dL (9-20); Calcium 9.3 mg/dL (8.4-10.2); Carbon Dioxide 30 mmol/L (22-32); Chloride 104 mmol/L (98-107); Cholesterol 190 mg/dL (140-199); Estimated Glomerular Filt Rate > 60.0 mL/min (>60); Globulin 3.2 g/dL (1.7-4.1); Glucose 102 mg/dL (80-110); HDL Cholesterol 85 mg/dL (40-60); HEMOLYSIS < 15 (0-50); LDL Cholesterol Calculated 94 mg/dL (<100); Potassium 3.8 mmol/L (3.4-5.1); Sodium 138 mmol/L (137-145); Total Protein 7.5 g/dL (6.3-8.2); Triglycerides 57 mg/dL (35-150)
[2020-09-20 13:06] LABS: Free T3, Triiodothyronine Free 3.58 pg/mL (2.77-5.27); Free T4, Direct Thyroxine 1.19 ng/dL (0.78-2.19)
== END ==
PROVIDERS: PCP Nurse Practitioner; Referring Provider Nurse Practitioner; Visit Provider Nurse Practitioner
DX: E03.9 Hypothyroidism, unspecified (principal); E78.5 Hyperlipidemia, unspecified; I10 Essential (primary) hypertension; Z79.899 Other long term (current) drug therapy
CPT/HCPCS: 36415; 80053; 80061; 84439; 84443; 84481

== ENCOUNTER → 2020-11-15 10:32 | Outpatient (CLI) | payer MEDICARE, SELFPAY ==
[2020-11-15 13:01] LABS: Alanine Aminotransferase 36 IU/L (<50); Albumin 3.9 g/dL (3.5-5.0); Albumin Globulin Ratio 1.3 (1.0-2.8); Alkaline Phosphatase 79 U/L (38-126); Aspartate Aminotransferase 35 IU/L (17-59); Bilirubin Total 0.7 mg/dL (0.2-1.3); Bilirubin Unconjugated 0.9 mg/dL (0.0-1.1); HEMOLYSIS < 15 (0-50); Total Protein 6.9 g/dL (6.3-8.2)
== END ==
PROVIDERS: PCP Nurse Practitioner; Referring Provider Nurse Practitioner; Visit Provider Nurse Practitioner
DX: R79.89 Other specified abnormal findings of blood chemistry (principal)
CPT/HCPCS: 36415; 80076

== ENCOUNTER → 2020-11-16 14:17 | Outpatient (CLI) | payer MEDICARE, SELFPAY ==
[2020-11-16 16:43] LABS: Prostate Specific Antigen 0.348 ng/mL (0.10-4.00)
== END ==
PROVIDERS: PCP Nurse Practitioner; Referring Provider Specialist; Visit Provider Specialist
DX: R97.20 Elevated prostate specific antigen [PSA] (principal)
CPT/HCPCS: 36415; 84153

== ENCOUNTER → 2021-04-13 10:11 | Outpatient (CLI) | payer MEDICARE, SELFPAY ==
[2021-04-13 12:10] LABS: Add Manual Diff / Slide Review NO; Basophils Absolute Auto 0 /uL (0-100); Basophils Percent Auto 0.9 % (0-2); Eosinophils Absolute Auto 100 /uL (0-450); Eosinophils Percent Auto 3.3 % (2-4); Hematocrit 45.3 % (41-53); Hemoglobin 14.7 g/dL (13.5-17.5); Lymphocytes Absolute Auto 700 /uL (1100-4500); Lymphocytes Percent Auto 16.1 % (25-40); Mean Corpuscular HGB Conc 32.5 % (30-36); Mean Corpuscular Hemoglobin 31.5 PG (26-34); Mean Corpuscular Volume 96.7 fL (80-100); Monocytes Absolute Auto 700 /uL (0-900); Neutrophils Absolute Auto 2600 /uL (1500-7000); Neutrophils Percent Auto 62.7 % (50-75); Platelet Count 154 X10^3/uL (150-400); Red Blood Cell Count 4.68 X10^6/uL (4.5-5.9); Red Cell Distribution Width 15.4 % (11.6-14.8); White Blood Cell Count 4.1 X10^3/uL (4.5-11.0)
[2021-04-13 12:14] LABS: BUN Creatinine Ratio 20.2 (6-22); Blood Urea Nitrogen 18 mg/dL (9-20); Calcium 9.5 mg/dL (8.4-10.2); Carbon Dioxide 26 mmol/L (22-32); Chloride 104 mmol/L (98-107); Cholesterol 176 mg/dL (140-199); Estimated Glomerular Filt Rate > 60.0 mL/min (>60); Glucose 95 mg/dL (80-110); HDL Cholesterol 79 mg/dL (40-60); HEMOLYSIS < 15 (0-50); LDL Cholesterol Calculated 87 mg/dL (<100); Potassium 4.2 mmol/L (3.4-5.1); Sodium 137 mmol/L (137-145); Triglycerides 48 mg/dL (35-150)
[2021-04-13 12:56] LABS: Prostate Specific Antigen 0.232 ng/mL (0.10-4.00)
== END ==
PROVIDERS: PCP Nurse Practitioner; Referring Provider Specialist; Visit Provider Internal Medicine Cardiovascular Disease
DX: R97.20 Elevated prostate specific antigen [PSA] (principal); I50.32 Chronic diastolic (congestive) heart failure; E78.5 Hyperlipidemia, unspecified
CPT/HCPCS: 36415; 80048; 80061; 84153; 85025

== ENCOUNTER → 2021-05-18 11:17 | Outpatient (CLI) | payer MEDICARE, SELFPAY ==
--- NOTE | 2021-05-18 11:19 | DI.RAD.S_ITS ---
PROCEDURE: XR CHEST 2V INDICATIONS: syncope, swallow trouble, history of pneumonia TECHNIQUE: 2 views of the chest were acquired. COMPARISON: [facility], [facility], XR CHEST 2V, 04/13/2019, 12:22. FINDINGS: Surgical changes and devices: None. Lungs and pleura: Lungs are mildly abnormal with a mild interstitial prominence stable over time. No pleural effusions or pneumothorax. Mediastinum: Mediastinal contours are normal. Heart size is normal. Bones and chest wall: No suspicious bony abnormalities. Soft tissues appear unremarkable. IMPRESSION: Mild interstitial prominence stable over time, perhaps reflecting a prior smoking history. Dictated by: Sage Fox M.D. on 05/18/2021 at 12:35 Approved by: Sage Fox M.D. on 05/18/2021 at 12:35
== END ==
PROVIDERS: PCP Nurse Practitioner; Referring Provider Nurse Practitioner; Visit Provider Nurse Practitioner
DX: Z87.01 Personal history of pneumonia (recurrent) (principal); R13.10 Dysphagia, unspecified; R55 Syncope and collapse
CPT/HCPCS: 71046

== ENCOUNTER → 2021-06-04 12:02 | Outpatient (CLI) | payer MEDICARE, SELFPAY ==
--- NOTE | 2021-06-04 12:03 | DI.US.S_ITS ---
PROCEDURE: US PERIPH VENOUS LOW EXTREM RT INDICATIONS: CALF PAIN TECHNIQUE: Real-time imaging, as well as color and pulse Doppler interrogation, were performed of the lower extremity deep veins from the inguinal ligament to the popliteal fossa. COMPARISON: None. FINDINGS: The common femoral, femoral and popliteal veins are normally compressible, and free of intraluminal thrombus. Color and pulse Doppler demonstrate normal phasic intraluminal flow. There is normal augmentation response to distal compression maneuver. IMPRESSION: No deep venous thrombosis identified within the right lower extremity. Dictated by: Sukumar Mcallister [facility] Interpreted: Mati Layne MD on 06/04/2021 at 12:44 Transcribed by: MADHAVI on 06/04/2021 at 12:44 Approved by: Mati Layne M.D. on 06/04/2021 at 16:43
== END ==
PROVIDERS: PCP Nurse Practitioner; Referring Provider Nurse Practitioner; Visit Provider Nurse Practitioner
DX: M79.661 Pain in right lower leg (principal)
CPT/HCPCS: 93971

== ENCOUNTER 2021-06-19 10:56 | Day surgery (SDC) | payer MEDICARE, SELFPAY ==
--- NOTE | 2021-06-19 | PATH_ITS ---
[facility] Accession Number: [id number] . 01 Material submitted: . PART A: gastrointestinal site - GASTRIC POLYP PART B: esophagus - ESOPHAGEAL PLAQUE . 02 Diagnosis: A. Stomach, Polyp, Biopsy: Gastric hyperplastic polyp. No evidence of Helicobacter on H/E stain. Negative for intestinal metaplasia. Negative for dysplasia and malignancy. . B. Esophagus, Plaque, Biopsy: Squamous epithelium with glycogenic acanthosis. A PAS stain is negative for fungal organisms. Intraepithelial eosinophils are not increased. Negative for dysplasia and malignancy. MRV 06/26/2021 1354 Local . 02 Electronically signed: . Romy Perry MD, Pathologist NPI- [id number] . 01 Gross description: . Part A: GASTRIC POLYP: Received in formalin is 1 fragment(s) of lozano, soft tissue measuring 0.4 x 0.3 x 0.2 cm submitted entirely in 1 cassette(s) Part B: ESOPHAGEAL PLAQUE: Received in formalin is 1 fragment(s) of lozano, soft tissue measuring 0.3 x 0.3 x 0.1 cm submitted entirely in 1 cassette(s) /RADHA 06/20/2021 0449 Local . 02 Microscopic: . B. A PAS stain was performed to evaluate for fungal organisms and is negative. The control stain showed appropriate reactivity. . 02 Pathologist provided ICD-10: R13.10 . 02 CPT . 297730, 551296, 679346 Performed at: 01 [facility] [address] [id number] MD David Corea MD Phone: [phone] Performed at: 02 [facility] [id number] [place] [id number] MD Romy Perry MD Phone: [phone]
[2021-06-19 12:18] LABS: COVID19 -Nasal RAPID Negative (Negative)
--- NOTE | 2021-06-19 12:56 | PM.HP.1 ---
History of Present Illness History of Present Illness Date Patient Seen: 06/19/21 Time Patient Seen: 12:56 Chief complaint: EGD W/POSS BX Narrative: I reviewed Dr. Parker's note. Dysphagia to liquids Patient History Medical History Abnormal chest x-ray (~2005) Acne (~1953) Arthritis Asthma (~1988) Atrial dilatation, bilateral Atrial fibrillation by electrocardiogram Balance problem Benign prostatic hyperplasia (~2006) BPH NOS w/o ur obs/LUTS Cataracts, bilateral Chicken pox (~1944) Chronic anticoagulation Colon polyps (~1986) Coronary heart disease Deviated septum Family history of prostate cancer Fractures (~1966) Hearing loss (~2008) Hemorrhoid (~1984) History of urinary retention Hypertension (~2005) Measles (~1944) Mitral regurgitation Right ventricular dilation Seasonal allergies (~1955) Shoulder pain (~1999) Spermatocele of epididymis, single Tricuspid regurgitation Vision disorder Surgical History Anesthesia History of appendectomy (~1943) History of circumcision History of hemorrhoidectomy History of vasectomy S/P TURP (~2008) Skin cancer, basal cell (~1977) Status post left knee replacement (~2000) Status post right knee replacement (~2001) Status post right rotator cuff repair (~1999) Family & Social History Family History Father Prostate cancer Hyperlipidemia Hypertension Mother Past heart attack Coronary artery disease Hyperlipidemia Hypertension Brother Leukemia Brother Testicular cancer Sister Stroke Family/Other ARDS (adult respiratory distress syndrome) Tobacco & Substance use: Smoking Status Former smoker alcohol intake current alcohol intake frequency 0-2 drinks per day Substance Use Type does not use Meds Home Medications and Allergies Home Medications Medication Instructions Recorded Confirmed Type cholecalciferol (vitamin D3) 50 2,000 unit PO DAILY 04/13/19 06/19/21 History mcg (2,000 unit) capsule Allerest 1 tab PO DAILY 04/15/19 04/24/21 History apixaban 5 mg tablet (Eliquis) 5 mg PO BID 02/23/20 06/19/21 History varicella-zoster glycoE vacc-AS01B 50 mcg IM ONCE #1 each 08/31/20 06/19/21 Rx adj(PF) 50 mcg/0.5 mL IM susp, kit (Shingrix (PF)) imiquimod 5 % topical cream packet 1 applictn TOP 2XW 09/20/20 06/19/21 History dutasteride 0.5 mg capsule 0.5 mg PO DAILY #90 cap 11/17/20 04/24/21 Rx omeprazole 40 mg capsule,delayed 40 mg PO DAILY #90 cap 01/10/21 06/19/21 Rx release atorvastatin 40 mg tablet 40 mg PO BEDTIME #90 tab 05/28/21 06/19/21 Rx furosemide 40 mg tablet See Rx Instructions PO QAM #30 tab 06/04/21 06/19/21 Rx amlodipine 10 mg tablet See Rx Instructions .ROUTE 06/07/21 06/19/21 Rx .COMPLEX #90 tab Allergies Allergy/AdvReac Type Severity Reaction Status Date / Time No Known Drug Allergies Allergy Verified 06/19/21 12:40 Review of Systems Review of Systems ROS: Yes All systems reviewed with the patient and are negative except as otherwise documented Exam Const General: cooperative and comfortable Orientation: alert HENAZ Head: normocephalic Ears: external ears normal Nose: external nose normal Face and sinus: normal facial exam Mouth: oral mucosae normal Eyes General: appearance normal, both eyes and all related structures Neck Neck: normal visual inspection Chest Chest: normal inspection of the chest Resp Effort & Inspection: normal respiratory effort Auscultation: clear to auscultation bilaterally Cardio Rate: regular rate Heart Sounds: no murmurs GI Inspection: normal to inspection Palpation: soft and No tender Auscultation: normal bowel sounds Skin General: no rashes or lesions noted and No jaundice Neuro General: patient alert and moves all extremities Cognition: normal cognition Speech: speech normal Extrem General: pedal edema Psych Appearance: grossly normal Objective Labs Labs: Laboratory Results - last 24 hr 06/19/21 11:02 SARS-CoV-2 (PCR) Negative Assessment & Plan Assessment & Plan narrative: 80-year-old male with dysphagia to liquids. EGD is planned for today.
[2021-06-19] MEDS: SODIUM CHLORIDE 0.9% 1,000 ML 125 ML IV (12:58)
[2021-06-19 12:59] VITALS: BP 147/92; PULSE 87; RESP 16; TEMP 36.6; O2SAT 98; BMI 30.2
--- NOTE | 2021-06-19 12:59 | PM.PREOP ---
Pre-operative Note COVID-19 COVID-19 status: Negative Result date/Date tested (Pos, Neg/Pending): 06/19/21 Interval Note History & Physical reviewed/Exam performed by Physician: Yes Changes to H&P: No ASA Class (for procedural sedation): III
[2021-06-19] MEDS: LIDOCAINE 4% SOLN 50 ML 20 ML TOP (13:45)
[2021-06-19] MEDS: fentaNYL 250 MCG/5 ML INJ IV (13:50)
[2021-06-19] MEDS: MIDAZOLAM 5 MG/5 ML VIAL IV (13:50)
--- NOTE | 2021-06-19 14:04 | P.OP.ENDO_ITS ---
Operative Date/Time/Diagnoses Date of procedure: 06/19/21 Time of procedure: 14:04 Pre-op diagnosis: Dysphagia to liquids Post-op diagnosis: same Procedure & Clinicians Study performed: Esophagogastroduodenoscopy with biopsies Same procedure as scheduled: Yes Indications: Dysphagia to liquids Surgeon: Casimiro Holley Procedure Notes SCOAP/Timeout: Done Procedure in detail: After the risks and benefits were explained, written and verbal informed consent was obtained. The patient was brought into the procedure room and placed into the left lateral decubitus position. Conscious sedation medication was applied as per nursing documentation. The scope was introduced into the mouth through the bite block and advanced under direct visualization to the 2nd portion of the duodenum. The scope was slowly withdrawn carefully examining the mucosa for any defects or lesions. Retroflexed views were accomplished in the stomach. The stomach was decompressed, the scope was then removed from the patient who tolerated the pr ocedure well. 3 mg Versed 75 mcg fentanyl Scope withdrawal time: Not applicable Sedation minutes: 17 Complications: none Impression: 1. Duodenum: This was normal in appearance from the bulb through to the 2nd portion. He 2. Stomach: No outlet obstruction no ulcers no mass lesions. Minimal gastropathy was noted and several small benign-appearing gastric polyps throughout the body and fundus. One of these was sampled for histopathologic analysis. Otherwise retroflexed views of the LES did not disclose any suggestion of mass in the region of the cardia 3. Esophagus: The squamocolumnar junction correlated quite nicely with the GEJ which was at approximately 40 cm from the incisors. There was no evidence of any stricture no Schatzki's. The esophagus was visually normal throughout with the exception of a small white firm plaque in the distal esophagus at around 9 :00 a.m.. We sampled this with biopsy forceps. The lower esophageal sphincter mechanism seemed to be snug but not excessively tight and fairly easily allowed us access into the stomach. Endoscopic diagnosis 1. Gastric polyps 2. Small white distal esophageal plaque 3. If she otherwise visually unremarkable EGD Post-procedure Recommendations: Will call with biopsy results Plan for aftercare: 1. Await histopathology 2. Surveillance EGD is not anticipated. 3. Esophageal manometry would be appropriate. 4. Okay to restart anticoagulation tomorrow. Disposition: PACU
[2021-06-19 14:09] VITALS: BP 145/87; PULSE 71; RESP 16; TEMP 36.5; O2SAT 96
[2021-06-19 14:14] VITALS: BP 140/88; PULSE 79; RESP 16; O2SAT 96
[2021-06-19 14:19] VITALS: BP 137/86; PULSE 81; RESP 18; TEMP 36.2; O2SAT 94
[2021-06-19 14:32] VITALS: BP 134/90; PULSE 72; RESP 16; O2SAT 94
== END 2021-06-19 14:35 | disposition home or self-care (01) ==
PROVIDERS: PCP Nurse Practitioner; Referring Provider Internal Medicine Gastroenterology; Visit Provider Internal Medicine Gastroenterology
PROC: 0DJ08ZZ Inspection of Upper Intestinal Tract, Via Natural or Artificial Opening Endoscopic (ICD-10-PCS; CPT 43235; principal; 2021-06-19 12:30)
DX: R13.10 Dysphagia, unspecified (principal); Z20.822 Contact with and (suspected) exposure to COVID-19; I48.91 Unspecified atrial fibrillation; I10 Essential (primary) hypertension; E78.5 Hyperlipidemia, unspecified; K21.9 Gastro-esophageal reflux disease without esophagitis; K31.7 Polyp of stomach and duodenum; K92.89 Other specified diseases of the digestive system; L83 Acanthosis nigricans
CPT/HCPCS: 43239; 87635; J2250; J3010

== ENCOUNTER → 2021-09-26 11:00 | Outpatient (CLI) | payer MEDICARE, SELFPAY ==
[2021-09-26 12:14] LABS: Alanine Aminotransferase 31 IU/L (<50); Albumin 4.3 g/dL (3.5-5.0); Albumin Globulin Ratio 1.5 (1.0-2.8); Alkaline Phosphatase 77 U/L (38-126); Aspartate Aminotransferase 32 IU/L (17-59); BUN Creatinine Ratio 18.8 (6-22); Bilirubin Total 1.2 mg/dL (0.2-1.3); Blood Urea Nitrogen 18 mg/dL (9-20); Calcium 9.7 mg/dL (8.4-10.2); Carbon Dioxide 27 mmol/L (22-32); Chloride 102 mmol/L (98-107); Cholesterol 186 mg/dL (140-199); Estimated Glomerular Filt Rate > 60.0 mL/min (>60); Globulin 2.8 g/dL (1.7-4.1); Glucose 90 mg/dL (80-110); HDL Cholesterol 100 mg/dL (40-60); HEMOLYSIS < 15 (0-50); LDL Cholesterol Calculated 75 mg/dL (<100); Potassium 4.3 mmol/L (3.4-5.1); Sodium 138 mmol/L (137-145); Total Protein 7.1 g/dL (6.3-8.2); Triglycerides 54 mg/dL (35-150)
[2021-09-26 12:31] LABS: Free T3, Triiodothyronine Free 2.96 pg/mL (2.77-5.27); Free T4, Direct Thyroxine 1.06 ng/dL (0.78-2.19)
[2021-09-26 12:44] LABS: Prostate Specific Antigen Scrn 0.284 ng/mL (0.1-4.0)
[2021-09-26 12:45] LABS: Thyroid Stimulating Hormone 1.75 uIU/mL (0.47-4.68)
[2021-09-26 13:31] LABS: Microalbumi Creatinin Ratio Ur 30.9 ug/mg CR (<30); Microalbumin Urine Random 1.3 mg/dL (0-1.6)
== END ==
PROVIDERS: PCP Nurse Practitioner; Referring Provider Nurse Practitioner; Visit Provider Nurse Practitioner
DX: E78.00 Pure hypercholesterolemia, unspecified (principal); Z12.5 Encounter for screening for malignant neoplasm of prostate; I10 Essential (primary) hypertension; I48.91 Unspecified atrial fibrillation; E78.5 Hyperlipidemia, unspecified; Z79.899 Other long term (current) drug therapy
CPT/HCPCS: 36415; 80053; 80061; 82043; 82570; 84439; 84443; 84481; G0103

== ENCOUNTER → 2021-10-29 10:49 | Outpatient (CLI) | payer MEDICARE, SELFPAY ==
--- NOTE | 2021-10-29 | DI.RAD.S_ITS ---
PROCEDURE: FL BARIUM SWALLOW W AIR COMPARISON: None. INDICATIONS: Dysphagia, unspecified FINDINGS: There is moderate esophageal dysmotility with loss of the primary wave. No hiatal hernia. No significant stricture. IMPRESSION: 1. Esophageal dysmotility. 2. No hiatal hernia or stricture. Dictated by: John Pérez M.D. on 10/29/2021 at 13:05 Approved by: John Pérez M.D. on 10/29/2021 at 13:06
== END ==
PROVIDERS: PCP Nurse Practitioner; Referring Provider Internal Medicine Gastroenterology; Visit Provider Internal Medicine Gastroenterology
DX: R13.10 Dysphagia, unspecified (principal); K22.4 Dyskinesia of esophagus
CPT/HCPCS: 74221

== ENCOUNTER → 2022-01-18 10:53 | Outpatient (CLI) | payer MEDICARE, SELFPAY ==
--- NOTE | 2022-01-18 | DI.RAD.S_ITS ---
PROCEDURE: FL BARIUM SWALLOW W AIR COMPARISON: [facility], , [place] BARIUM SWALLOW W AIR, 10/29/2021, 12:28. INDICATIONS: Dysphagia, unspecified FINDINGS: Function: The oral preparatory phase appears normal, with proper containment. The subsequent oral propulsive phase, pharyngeal phase and esophageal phase of swallowing also appear normal. No laryngotracheal penetration or aspiration. No pathologic vallecular or piriform sinus pooling. Mild tertiary contraction waves noted in the distal esophagus compatible with mild esophageal dysmotility. 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 No cervical esophageal webs. No Zenker's diverticulum. There is circumferential narrowing of the distal esophagus at the gastroesophageal junction. There is slight mucosal irregularity at the area of circumferential narrowing of the distal esophagus. There was delayed passage of 13 millimeter calibrated barium tablet at the area of circumferential narrowing in the distal esophagus. IMPRESSION: 1. No laryngotracheal penetration or aspiration. 2. Cricopharyngeal bar. 3. Mild distal esophageal dysmotility. 4. Mild circumferential narrowing of the distal esophagus at the GE junction which delayed passage of 13 millimeter calibrated barium tablet. Recommend endoscopy to differentiate benign stricture from early malignancy. Dictated by: Jaimie Ortiz MD, PhD on 01/18/2022 at 13:20 Approved by: Jaimie Ortiz MD, PhD on 01/18/2022 at 13:28
== END ==
PROVIDERS: PCP Nurse Practitioner; Referring Provider Internal Medicine Gastroenterology; Visit Provider Internal Medicine Gastroenterology
DX: R13.10 Dysphagia, unspecified (principal); K22.2 Esophageal obstruction
CPT/HCPCS: 74221

== ENCOUNTER → 2022-04-11 10:06 | Outpatient (CLI) | payer MEDICARE, SELFPAY ==
[2022-04-11 12:20] LABS: Prostate Specific Antigen 0.315 ng/mL (0.10-4.00)
== END ==
PROVIDERS: PCP Nurse Practitioner; Referring Provider Specialist; Visit Provider Specialist
DX: R97.20 Elevated prostate specific antigen [PSA] (principal)
CPT/HCPCS: 36415; 84153

== ENCOUNTER → 2022-04-16 11:10 | Outpatient (CLI) | payer MEDICARE, SELFPAY ==
[2022-04-16 11:49] LABS: COVID19 -Nasal RAPID Negative (Negative)
== END ==
PROVIDERS: PCP Nurse Practitioner; Visit Provider Surgery
DX: Z20.822 Contact with and (suspected) exposure to COVID-19 (principal); N40.0 Benign prostatic hyperplasia without lower urinary tract symptoms; Z87.898 Personal history of other specified conditions; Z80.42 Family history of malignant neoplasm of prostate
CPT/HCPCS: 51798; 81002; 87635; 99214; C9803

== ENCOUNTER 2022-04-17 11:46 | Day surgery (SDC) | payer MEDICARE, SELFPAY ==
[2022-04-17] VITALS (7 sets, daily range): BP systolic 129–147; BP diastolic 84–94; PULSE 65–78; RESP 12–20; TEMP 36.6–36.9; O2SAT 95–98; BMI 29.4
[2022-04-17] MEDS: SODIUM CHLORIDE 0.9% 1,000 ML 70 ML IV (13:51)
--- NOTE | 2022-04-17 14:18 | PM.HP.1 ---
History of Present Illness History of Present Illness Date Patient Seen: 04/17/22 Time Patient Seen: 14:19 Chief complaint: EGD W/POSS BX Narrative: Patient is a very pleasant 81-year-old male who presented for upper endoscopy with dilation. Patient has been having intermittent dysphagia. He did have a esophagram on 01/18/2022 which did show pill copy near the GE junction. This is suspicious for underlying subtle stricture. He was recommended to have EGD with dilation regardless of the face dominant stricture was identified. He was last evaluated in the office on 10/16/2021. He has had persistent symptoms since that time. Last dose of blood thinners 5 days before procedure Patient History Medical History Abnormal chest x-ray (~2005) Acne (~1953) Arthritis Asthma (~1988) Atrial dilatation, bilateral Atrial fibrillation by electrocardiogram Balance problem Benign prostatic hyperplasia (~2006) BPH NOS w/o ur obs/LUTS Cataracts, bilateral Chicken pox (~1944) Chronic anticoagulation Colon polyps (~1986) Coronary heart disease Deviated septum Family history of prostate cancer Fractures (~1966) Hearing loss (~2008) Hemorrhoid (~1984) History of urinary retention Hypertension (~2005) Measles (~1944) Mitral regurgitation Right ventricular dilation Seasonal allergies (~1955) Shoulder pain (~1999) Spermatocele of epididymis, single Tricuspid regurgitation Vision disorder Surgical History Anesthesia History of appendectomy (~1943) History of circumcision History of hemorrhoidectomy History of vasectomy S/P TURP (~2008) Skin cancer, basal cell (~1977) Status post left knee replacement (~2000) Status post right knee replacement (~2001) Status post right rotator cuff repair (~1999) Family & Social History Family History Father Prostate cancer Hyperlipidemia Hypertension Mother Past heart attack Coronary artery disease Hyperlipidemia Hypertension Brother Leukemia Brother Testicular cancer Sister Stroke Family/Other ARDS (adult respiratory distress syndrome) Social History: household members spouse Tobacco & Substance use: Smoking Status Former smoker alcohol intake current alcohol intake frequency 0-2 drinks per day Substance Use Type does not use Meds Home Medications and Allergies Home Medications Medication Instructions Recorded Confirmed Type cholecalciferol (vitamin D3) 50 2,000 unit PO DAILY 04/13/19 04/17/22 History mcg (2,000 unit) capsule apixaban 5 mg tablet (Eliquis) 5 mg PO BID 02/23/20 04/17/22 History varicella-zoster glycoE vacc-AS01B 50 mcg IM ONCE #1 each 08/31/20 06/19/21 Rx adj(PF) 50 mcg/0.5 mL IM susp, kit (Shingrix (PF)) imiquimod 5 % topical cream packet 1 applictn TOP 2XW 09/20/20 04/17/22 History atorvastatin 40 mg tablet 40 mg PO BEDTIME #90 tab 05/28/21 04/17/22 Rx amlodipine 10 mg tablet See Rx Instructions .ROUTE 06/07/21 04/17/22 Rx .COMPLEX #90 tab furosemide 40 mg tablet See Rx Instructions PO QAM #30 tab 10/01/21 04/17/22 Rx psyllium husk 0.4 gram capsule 0.4 g PO DAILY 10/01/21 04/17/22 History (Fiber (psyllium husk)) omeprazole 40 mg capsule,delayed 40 mg PO DAILY #90 cap 01/02/22 04/17/22 Rx release dutasteride 0.5 mg capsule See Rx Instructions .ROUTE 04/16/22 04/17/22 Rx .COMPLEX #90 cap Allergies Allergy/AdvReac Type Severity Reaction Status Date / Time No Known Drug Allergies Allergy Verified 10/01/21 09:08 Review of Systems Review of Systems ROS: Yes All systems reviewed with the patient and are negative except as otherwise documented Exam Vital Signs (past 8 hours): - 04/17/22 13:25 Temperature 97.8 F Pulse Rate 76 Respiratory Rate 18 Blood Pressure 137/93 H Pulse Oximetry 96 Oxygen Delivery Method Room Air Const General: cooperative, healthy appearing, comfortable, well developed and well groomed [facility] Head: normocephalic and atraumatic Resp Effort & Inspection: normal respiratory effort and able to speak in complete sentences Auscultation: clear to auscultation bilaterally Cardio Rate: regular rate Rhythm: abnormal rhythm irregularly irregular GI Palpation: soft Assessment & Plan Assessment & Plan narrative: 1. Esophageal dysphagia 2. Abnormal esophagram EGD today with dilation further recommendations to follow Time Spent With Patient Critical Care time: I spent a total of [] minutes of critical care time on this patient's care today; this time is exclusive of procedural time.
--- NOTE | 2022-04-17 14:40 | PM.OP.EGD ---
Operative Date/Time/Diagnoses Date of procedure: 04/17/22 Time of procedure: 14:30 Procedure Notes Procedure in detail: Surgeon: Kelsey Flowers DO Procedure: Esophagogastroduodenoscopy with dilation Preoperative diagnosis: 1. Esophageal dysphagia 2. Abnormal esophagram Postoperative diagnosis: 1. 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 The procedure was discussed in detail with the patient. The potential risks and complications including infection, bleeding, missed lesions, perforation, need for surgery in case of perforation, prolonged hospital stay, and were explained. A brief question and answer period was allotted and once all questions were answered, informed consent was obtained. The patient was brought back to the procedure room and placed on standard monitoring. The patient?s vital signs were monitored continuously throughout the entire procedure. Prior to starting, a timeout was performed to confirm the patient?s identity, allergies, medications, and procedure. Procedure in detail The patient was placed in left lateral decubitus position and a bite block was inserted. The tip of the upper endoscope was placed into the mouth and advanced without difficulty under direct visualization into the esophagus. Esophagus: Subtle stricture identified at the GE junction initial dilation with balloon 12-15, no significant resistance this was then exchanged for a 15-18 balloon. We were able to dilate to 18 with moderate resistance. Post balloon inspection revealed improvement in the subtle stricture. 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 These have been biopsied on previous upper endoscopy. Duodenum: Unremarkable The patient tolerated the procedure well and will be brought back to the recovery area to be discharged once criteria are met. The total physician intraservice time was 9min. Complications There were no complications and estimated blood loss was minimal. Recommendations: Resume previous diet Continue outPx medications, okay to resume anticoagulation today Office follow up if persistent symptoms An emergency contact number was given to the patient for any complications related to the procedure
--- NOTE | 2022-04-17 15:02 | SUR.PHASEI ---
bilateral hearing aids in place from the endo room. A&O upon arrival, cheerful
--- NOTE | 2022-04-17 15:04 | SUR.PHASEI ---
1504 hand off to Dario Hsu RN
== END 2022-04-17 15:25 | disposition home or self-care (01) ==
PROVIDERS: PCP Nurse Practitioner; Referring Provider Student in an Organized Health Care Education/Training Program; Visit Provider Student in an Organized Health Care Education/Training Program
PROC: 0DJ08ZZ Inspection of Upper Intestinal Tract, Via Natural or Artificial Opening Endoscopic (ICD-10-PCS; CPT 43235; principal; 2022-04-17 14:00)
DX: K22.2 Esophageal obstruction (principal)
CPT/HCPCS: 43249; J2704

== ENCOUNTER → 2022-12-18 08:42 | Outpatient (CLI) | payer MEDICARE, SELFPAY ==
[2022-12-18 10:01] LABS: Add Manual Diff / Slide Review NO; Basophils Absolute Auto 100 /uL (0-100); Basophils Percent Auto 1.3 % (0-2); Eosinophils Absolute Auto 300 /uL (0-450); Eosinophils Percent Auto 5.3 % (2-4); Hematocrit 43.3 % (41-53); Lymphocytes Absolute Auto 600 /uL (1100-4500); Lymphocytes Percent Auto 13.1 % (25-40); Mean Corpuscular HGB Conc 32.4 % (30-36); Mean Corpuscular Hemoglobin 30.6 PG (26-34); Mean Corpuscular Volume 94.3 fL (80-100); Monocytes Absolute Auto 1000 /uL (0-900); Monocytes Percent Auto 20.2 % (3-14); Neutrophils Absolute Auto 2900 /uL (1500-7000); Neutrophils Percent Auto 60.1 % (50-75); Platelet Count 202 X10^3/uL (150-400); Red Blood Cell Count 4.59 X10^6/uL (4.5-5.9); Red Cell Distribution Width 14.4 % (11.6-14.8); White Blood Cell Count 4.8 X10^3/uL (4.5-11.0)
[2022-12-18 10:24] LABS: Alanine Aminotransferase 34 IU/L (<50); Albumin 3.8 g/dL (3.5-5.0); Albumin Globulin Ratio 1.4 (1.0-2.8); Alkaline Phosphatase 109 U/L (38-126); Aspartate Aminotransferase 32 IU/L (17-59); BUN Creatinine Ratio 14.4 (6-22); Bilirubin Total 0.9 mg/dL (0.2-1.3); Blood Urea Nitrogen 14 mg/dL (9-20); Calcium 9.1 mg/dL (8.4-10.2); Carbon Dioxide 27 mmol/L (22-32); Chloride 101 mmol/L (98-107); Cholesterol 150 mg/dL (140-199); Estimated Glomerular Filt Rate > 60 mL/min (>60); Globulin 2.7 g/dL (1.7-4.1); Glucose 87 mg/dL (80-110); HDL Cholesterol 71 mg/dL (40-60); HEMOLYSIS < 15 (0-50); LDL Cholesterol Calculated 71 mg/dL (<100); Potassium 4.4 mmol/L (3.4-5.1); Sodium 136 mmol/L (137-145); Total Protein 6.5 g/dL (6.3-8.2); Triglycerides 39 mg/dL (35-150)
[2022-12-18 10:33] LABS: Creatinine Urine Random 79.7 mg/dL
[2022-12-18 10:37] LABS: Free T3, Triiodothyronine Free 3.59 pg/mL (2.77-5.27); Free T4, Direct Thyroxine 1.51 ng/dL (0.78-2.19); Microalbumi Creatinin Ratio Ur 32.6 ug/mg CR (<30); Microalbumin Urine Random 2.6 mg/dL (0-1.6)
[2022-12-18 10:50] LABS: Thyroid Stimulating Hormone 2.06 uIU/mL (0.47-4.68)
== END ==
PROVIDERS: PCP Nurse Practitioner; Referring Provider Nurse Practitioner; Visit Provider Nurse Practitioner
DX: E78.00 Pure hypercholesterolemia, unspecified (principal); I10 Essential (primary) hypertension; I48.91 Unspecified atrial fibrillation; Z79.01 Long term (current) use of anticoagulants; Z79.899 Other long term (current) drug therapy
CPT/HCPCS: 36415; 80053; 80061; 82043; 82570; 84439; 84443; 84481; 85025

== ENCOUNTER → 2023-04-10 12:06 | Outpatient (CLI) | payer MEDICARE, SELFPAY ==
[2023-04-10 13:49] LABS: Prostate Specific Antigen 0.777 ng/mL (0.10-4.00)
== END ==
PROVIDERS: PCP Nurse Practitioner; Referring Provider Specialist; Visit Provider Specialist
DX: N40.0 Benign prostatic hyperplasia without lower urinary tract symptoms (principal)
CPT/HCPCS: 36415; 84153

== ENCOUNTER → 2023-08-27 09:49 | Outpatient (CLI) | payer MEDICARE, SELFPAY ==
[2023-08-27 11:20] LABS: Add Manual Diff / Slide Review NO; Basophils Absolute Auto 0 /uL (0-100); Basophils Percent Auto 0.7 % (0-2); Eosinophils Absolute Auto 200 /uL (0-450); Eosinophils Percent Auto 4.5 % (2-4); Hematocrit 44.4 % (41-53); Hemoglobin 14.9 g/dL (13.5-17.5); Lymphocytes Absolute Auto 800 /uL (1100-4500); Lymphocytes Percent Auto 20.7 % (25-40); Mean Corpuscular HGB Conc 33.6 % (30-36); Mean Corpuscular Hemoglobin 31.9 PG (26-34); Mean Corpuscular Volume 94.7 fL (80-100); Monocytes Absolute Auto 700 /uL (0-900); Monocytes Percent Auto 18.6 % (3-14); Neutrophils Absolute Auto 2200 /uL (1500-7000); Neutrophils Percent Auto 55.5 % (50-75); Platelet Count 177 X10^3/uL (150-400); Red Blood Cell Count 4.69 X10^6/uL (4.5-5.9); Red Cell Distribution Width 14.4 % (11.6-14.8)
[2023-08-27 12:58] LABS: BUN Creatinine Ratio 18.2 (6-22); Blood Urea Nitrogen 16 mg/dL (9-20); Calcium 9.8 mg/dL (8.4-10.2); Carbon Dioxide 26 mmol/L (22-32); Chloride 104 mmol/L (98-107); Cholesterol 172 mg/dL (140-199); Estimated Glomerular Filt Rate > 60 mL/min (>60); Glucose 93 mg/dL (80-110); HDL Cholesterol 77 mg/dL (40-60); HEMOLYSIS < 15 (0-50); LDL Cholesterol Calculated 86 mg/dL (<100); Potassium 3.6 mmol/L (3.4-5.1); Sodium 138 mmol/L (137-145); Triglycerides 44 mg/dL (35-150)
== END ==
PROVIDERS: PCP Nurse Practitioner; Referring Provider Internal Medicine Cardiovascular Disease; Visit Provider Internal Medicine Cardiovascular Disease
DX: E78.5 Hyperlipidemia, unspecified (principal); I10 Essential (primary) hypertension; Z79.01 Long term (current) use of anticoagulants
CPT/HCPCS: 36415; 80048; 80061; 85025

== ENCOUNTER → 2023-10-06 12:53 | Outpatient (CLI) | payer MEDICARE, SELFPAY | PROVIDERS: PCP Nurse Practitioner; Referring Provider Specialist; Visit Provider Specialist | DX: N40.0 Benign prostatic hyperplasia without lower urinary tract symptoms (principal) | CPT/HCPCS: 36415; 84153 ==

== ENCOUNTER → 2024-03-23 10:10 | Outpatient (CLI) | payer MEDICARE, OTHER, SELFPAY ==
--- NOTE | 2024-03-23 10:14 | DI.RAD.S_ITS ---
PROCEDURE: XR CHEST 2V INDICATIONS: pt dx with pneumonia recently, continues to be symptomatic TECHNIQUE: 2 views of the chest were acquired. COMPARISON: [facility], CR, XR CHEST 2V, 05/18/2021, 11:17. [facility], CR, XR CHEST 2V, 04/13/2019, 12:22. FINDINGS: Surgical changes and devices: None. Lungs and pleura: Tedi-ts-ivsinamd interstitial prominence and perihilar fullness. No drainable pleural effusions. Mediastinum: Cardiomegaly. Unchanged cardiomediastinal contours Bones and chest wall: Degenerative changes. IMPRESSION: Tlsm-vv-zyxwyjil interstitial prominence and perihilar fullness. This may represent edema in the setting of cardiomegaly, versus infection/inflammation. Consider future imaging surveillance to assess for resolution. Consider CT to further evaluate if there is sufficient clinical concern. Dictated by: Mohan Dominguez M.D. on 03/23/2024 at 12:18 Approved by: Mhoan Dominguez M.D. on 03/23/2024 at 12:19
== END ==
PROVIDERS: PCP Nurse Practitioner; Referring Provider Nurse Practitioner; Visit Provider Nurse Practitioner
DX: J18.9 Pneumonia, unspecified organism (principal); I51.7 Cardiomegaly; R05.9 Cough, unspecified; R06.2 Wheezing; Z87.09 Personal history of other diseases of the respiratory system
CPT/HCPCS: 71046

== ENCOUNTER → 2024-05-03 12:31 | Outpatient (CLI) | payer MEDICARE, OTHER, SELFPAY ==
--- NOTE | 2024-05-03 12:34 | DI.RAD.S_ITS ---
PROCEDURE: XR CHEST 2V INDICATIONS: abnormal cxr TECHNIQUE: 2 views of the chest were acquired. COMPARISON: [facility], CR, XR CHEST 2V, 04/13/2019, 12:22. [facility], CR, XR CHEST 2V, 03/23/2024, 10:15. [facility], CR, XR CHEST 2V, 05/18/2021, 11:17. FINDINGS: Surgical changes and devices: None. Lungs and pleura: Mild chronic nonspecific interstitial prominence. No focal consolidation. No pleural effusions or pneumothorax. Mediastinum: Mediastinal contours are normal. Heart size is normal. Bones and chest wall: No suspicious bony abnormalities. Soft tissues appear unremarkable. IMPRESSION: Stable chronic findings. No acute cardiopulmonary abnormality is seen. Approved by: Zane Fabian M.D. on 05/03/2024 at 16:39
== END ==
LOC: RAD 12:33
PROVIDERS: PCP Nurse Practitioner; Referring Provider Nurse Practitioner; Visit Provider Nurse Practitioner
DX: J18.9 Pneumonia, unspecified organism (principal); R93.89 Abnormal findings on diagnostic imaging of other specified body structures
CPT/HCPCS: 71046

== ENCOUNTER → 2024-08-16 13:36 | Outpatient (CLI) | payer MEDICARE, OTHER, SELFPAY ==
--- NOTE | 2024-08-16 13:38 | DI.ECHO.S_ITS ---
[facility]+ [facility] : : [id number] [place] [place] : : [id number] : : Phone: [phone] Echocardiogram Report + + :Name: HELADIO MARQUEZ Study Date: 08/16/2024 Height: 69 in : :[facility] ReadingLocation: Weight: 190 lb : : Gender: Male BSA: 2.0 m2 : :: 1940 Age: 83 yrs BP: 157/96 mmHg: :Reason For Study: Atrial fibrillation : :Ordering Physician: DORINDA, : :GLENDY Performed By: Shelly Briggs : :Referring: GLENDY HIRSCH : + + Interpretation Summary 1) Normal left ventricular size and thickness with mildly reduced systolic function (EF 45-50%). 2) Moderately to severely enlarged right ventricle with mildly reduced function. 3) Both atria are severely dilated (right worse than left). 4) There is mild to moderate aortic stenosis (valve area 1.4cm2, mean gradient 11mmHg, severity ratio 0.38)/. 5) There is moderate tricuspid regurgitation. 6) The right ventricular systolic pressure is estimated to be at least 45 mmHg based on an estimated right atrial pressure of 15 mm Hg. 7) Compared to the Echo done 02/14/2020, mild-moderate aortic stenosis is present on this study and EF has dropped from normal to mildly reduced on this study. Procedure: A two-dimensional transthoracic echocardiogram with color flow and Doppler was performed. The study quality was technically adequate. Comparison is made with the echocardiogram of 02/14/2020. The patient was in atrial fibrillation with heart rates between 60-88 bpm during the exam. Left Ventricle: The left ventricle is normal in size and wall thickness. The ejection fraction is estimated to be 45-50%. There is significant beat to beat variation in EF due to the underlying AFib. There is mild global hypokinesis of the left ventricle. Diastolic parameters suggest a pseudonormalization pattern, consistent with probable elevated filling pressures. Right Ventricle: The right ventricle is moderate to severely dilated. Right ventricular systolic function is mildly reduced. Atria: Both atria are severely dilated. There is no Doppler evidence for an interatrial shunt. Mitral Valve: The mitral valve leaflets appear normal. There is no evidence of stenosis, fluttering, or prolapse. There is no mitral valve stenosis. There is trace mitral regurgitation. Aortic Valve: The aortic valve is trileaflet. The aortic valve is moderately calcified. There is mild to moderate aortic stenosis. No aortic regurgitation is present. Tricuspid Valve: The tricuspid valve leaflets are thin and pliable. There is moderate tricuspid regurgitation. The right ventricular systolic pressure is estimated to be at least 45 mmHg based on an estimated right atrial pressure of 15 mm Hg. Pulmonic Valve: The pulmonic valve leaflets are thin and pliable; valve motion is normal. There is a trace or physiologic amount of pulmonic regurgitation. Great Vessels: The aortic root is normal size. The ascending aorta is normal in size. The aortic arch is normal in size. The pulmonary artery is not well visualized, but is probably normal size. The IVC is of normal diameter and collapses greater than 50% with a sniff. This suggests a low right atrial pressure of 3 mm Hg. The IVC is dilated (diameter is greater than 2.1 cm) and it collapses less than 50% with a sniff. This suggests a high right atrial pressure of 15 mm Hg. MMode/2D Measurements & Calculations LVIDd: 4.7 cm LVOT diam: 2.2 cm LVIDs: 3.5 cm Ao root diam: 3.3 cm FS: 26.5 % asc Aorta Diam: 3.5 cm EPSS: 1.4 cm Ao Arch Diam (Prox Trans): 2.0 cm IVSd: 1.1 cm LVPWd: 1.0 cm LV neely. diameter/BSA (cm/m^2): 2.3 LV sys. diameter/BSA (cm/m^2): 1.7 LA A2 area: 32.6 cm2 RA long axis: 8.2 cm LA A4 area: 36.4 cm2 RA area: 45.4 cm2 LA length (vol): 7.8 cm RA vol: 213.2 ml LA vol: 129.9 ml RA : 105.5 ml/m2 LA vol index: 64.3 ml/m2 IVC diam: 3.1 cm TAPSE: 1.5 cm Doppler Measurements & Calculations Ao V2 max: 215.3 cm/sec LVOT Max Jesus: 83.5 cm/sec Ao V2 mean: 154.8 cm/sec LV V1 max P.8 mmHg Ao max P.6 mmHg LV V1 VTI: 18.3 cm Ao mean P.7 mmHg RADHA(I,D): 1.4 cm2 Ao V2 VTI: 47.9 cm RADHA(V,D): 1.4 cm2 sev ratio: 0.38 RADHA indexed to BSA (cm^2/m^2): 0.70 MV E max jesus: 110.1 cm/sec TR max jesus: 271.3 cm/sec MV A max jesus: 2.0 cm/sec TR max P.6 mmHg MV E/A: 54.7 PA pr(Accel): 20.8 mmHg MV dec time: 0.19 sec MVA(VTI): 3.0 cm2 MV V2 mean: 65.5 cm/sec SV(LVOT): 67.8 ml MV mean P.0 mmHg MV V2 VTI: 22.6 cm Reading Physician:09:56 AM
== END ==
PROVIDERS: Referring Provider Internal Medicine Cardiovascular Disease; Visit Provider Internal Medicine Cardiovascular Disease
DX: I08.2 Rheumatic disorders of both aortic and tricuspid valves (principal); I48.11 Longstanding persistent atrial fibrillation; I50.32 Chronic diastolic (congestive) heart failure
CPT/HCPCS: 93306

== ENCOUNTER → 2024-09-17 10:20 | Outpatient (CLI) | payer MEDICARE, OTHER, SELFPAY ==
[2024-09-17 11:51] LABS: Hematocrit 46.2 % (41-53); Hemoglobin 15.1 g/dL (13.5-17.5); Mean Corpuscular HGB Conc 32.7 % (30-36); Mean Corpuscular Hemoglobin 31.3 PG (26-34); Mean Corpuscular Volume 95.7 fL (80-100); Platelet Count 163 X10^3/uL (150-400); Red Blood Cell Count 4.83 X10^6/uL (4.5-5.9); Red Cell Distribution Width 14.2 % (11.6-14.8); White Blood Cell Count 3.9 X10^3/uL (4.5-11.0)
[2024-09-17 12:32] LABS: BUN Creatinine Ratio 21.6 (6-22); Blood Urea Nitrogen 22 mg/dL (9-20); Calcium 9.5 mg/dL (8.4-10.2); Carbon Dioxide 24 mmol/L (22-32); Chloride 104 mmol/L (98-107); Estimated Glomerular Filt Rate > 60 mL/min (>60); Glucose 81 mg/dL (80-110); HEMOLYSIS < 15 (0-50); Sodium 136 mmol/L (137-145)
[2024-09-17 12:39] LABS: NT-proBNP (BNP-Adult 18+) 2410 pg/mL (<450)
== END ==
PROVIDERS: Referring Provider Internal Medicine Cardiovascular Disease; Visit Provider Internal Medicine Cardiovascular Disease
DX: I50.32 Chronic diastolic (congestive) heart failure (principal)
CPT/HCPCS: 36415; 80048; 83880; 85027

== ENCOUNTER → 2024-10-25 13:15 | Outpatient (CLI) | payer MEDICARE, OTHER, SELFPAY ==
[2024-10-25 14:45] LABS: Prostate Specific Antigen 0.266 ng/mL (0.10-4.00)
== END ==
PROVIDERS: Referring Provider Urology; Visit Provider Urology
DX: Z87.898 Personal history of other specified conditions (principal); Z80.42 Family history of malignant neoplasm of prostate
CPT/HCPCS: 36415; 84153

== ENCOUNTER → 2025-01-21 11:34 | Outpatient (CLI) | payer MEDICARE, OTHER, SELFPAY ==
[2025-01-21 13:04] LABS: Alanine Aminotransferase 50 IU/L (<50); Albumin 3.9 g/dL (3.5-5.0); Albumin Globulin Ratio 1.6 (1.0-2.8); Alkaline Phosphatase 82 U/L (38-126); Aspartate Aminotransferase 42 IU/L (17-59); BUN Creatinine Ratio 16.5 (6-22); Bilirubin Total 1.2 mg/dL (0.2-1.3); Blood Urea Nitrogen 16 mg/dL (9-20); Calcium 9.3 mg/dL (8.4-10.2); Carbon Dioxide 24 mmol/L (22-32); Chloride 105 mmol/L (98-107); Cholesterol 163 mg/dL (140-199); Estimated Glomerular Filt Rate > 60 mL/min (>60); Globulin 2.5 g/dL (1.7-4.1); Glucose 95 mg/dL (80-110); HDL Cholesterol 77 mg/dL (40-60); HEMOLYSIS < 15 (0-50); LDL Cholesterol Calculated 77 mg/dL (<100); Lipase 67 U/L (23-300); Potassium 4.6 mmol/L (3.4-5.1); Sodium 138 mmol/L (137-145); Total Protein 6.4 g/dL (6.3-8.2); Triglycerides 44 mg/dL (35-150)
== END ==
PROVIDERS: PCP Internal Medicine; Referring Provider Internal Medicine; Visit Provider Internal Medicine
DX: I10 Essential (primary) hypertension (principal); E78.5 Hyperlipidemia, unspecified; R10.9 Unspecified abdominal pain
CPT/HCPCS: 36415; 80053; 80061; 83690

== ENCOUNTER 2025-03-25 17:44 | Emergency (ER) | payer MEDICARE, OTHER, SELFPAY ==
[2025-03-25] VITALS (17 sets, daily range): BP systolic 174–208; BP diastolic 86–114; PULSE 68–75; RESP 12–19; TEMP 36.7; O2SAT 96–98; BMI 28.3
--- NOTE | 2025-03-25 17:56 | DI.RAD.S_ITS ---
PROCEDURE: XR CHEST 1V INDICATIONS: Shortness of breath TECHNIQUE: One view of the chest was acquired. COMPARISON: [facility], CR, XR CHEST 2V, 05/03/2024, 12:46. [facility], CR, XR CHEST 2V, 03/23/2024, 10:15. FINDINGS: Surgical changes and devices: None. Lungs and pleura: Peribronchial cuffing. Mediastinum: Mediastinal contours appear normal. Heart size is enlarged. Bones and chest wall: No suspicious bony lesions. Overlying soft tissues appear unremarkable. IMPRESSION: Peribronchial cuffing, probably early pulmonary edema in this setting. Dictated by: Blayne Love M.D. on 03/25/2025 at 19:11 Approved by: Blayne Love M.D. on 03/25/2025 at 19:11
--- NOTE | 2025-03-25 18:01 | EKG_ITS ---
[address] [address] Test Date: 2025-03-25 Pat Name: Ricardo Austin Department: Room: Gender: Male Software Support Technician: RAMON : 1940 Requested By: Order Number: [id number] Reading MD: Jose Daniel Bautista MD Measurements Intervals [place] Rate: 77 P: MO: QRS: -11 QRSD: 138 T: -26 QT: 410 QTc: 463 Interpretive Statements Undetermined rhythm Nonspecific intraventricular block Electronically Signed On 03-26-2025 8:25:31 PDT by Jose Daniel Bautista MD
[2025-03-25 18:19] LABS: Add Manual Diff / Slide Review NO; Basophils Absolute Auto 0 /uL (0-100); Basophils Percent Auto 0.8 % (0-2); Eosinophils Absolute Auto 200 /uL (0-450); Eosinophils Percent Auto 3.8 % (2-4); Hematocrit 41.7 % (41-53); Hemoglobin 13.9 g/dL (13.5-17.5); Lymphocytes Absolute Auto 1000 /uL (1100-4500); Lymphocytes Percent Auto 22.1 % (25-40); Mean Corpuscular HGB Conc 33.3 % (30-36); Mean Corpuscular Volume 96.1 fL (80-100); Monocytes Absolute Auto 700 /uL (0-900); Monocytes Percent Auto 14.1 % (3-14); Neutrophils Absolute Auto 2700 /uL (1500-7000); Neutrophils Percent Auto 59.2 % (50-75); Platelet Count 153 X10^3/uL (150-400); Red Blood Cell Count 4.34 X10^6/uL (4.5-5.9); Red Cell Distribution Width 14.6 % (11.6-14.8); White Blood Cell Count 4.6 X10^3/uL (4.5-11.0)
[2025-03-25 18:27] LABS: Lactate (Lactic Acid) 0.9 mmol/L (0.7-2.1)
[2025-03-25 18:28] LABS: Alanine Aminotransferase 43 IU/L (<50); Albumin 3.9 g/dL (3.5-5.0); Albumin Globulin Ratio 1.4 (1.0-2.8); Alkaline Phosphatase 82 U/L (38-126); Aspartate Aminotransferase 40 IU/L (17-59); BUN Creatinine Ratio 20.9 (6-22); Bilirubin Total 1.3 mg/dL (0.2-1.3); Blood Urea Nitrogen 19 mg/dL (9-20); Carbon Dioxide 28 mmol/L (22-32); Chloride 105 mmol/L (98-107); Estimated Glomerular Filt Rate > 60 mL/min (>60); Globulin 2.7 g/dL (1.7-4.1); Glucose 92 mg/dL (70-99); HEMOLYSIS < 15 (0-50); Potassium 3.8 mmol/L (3.4-5.1); Sodium 140 mmol/L (137-145); Total Protein 6.6 g/dL (6.3-8.2)
[2025-03-25 18:39] LABS: NT-proBNP (BNP-Adult 18+) 4260 pg/mL (<450); Troponin I 0.014 ng/mL (0.01-0.034)
[2025-03-25 18:46] LABS: INR 1.3 (0.9-1.3); Prothrombin Time 14.2 SECONDS (9.4-12.5)
--- NOTE | 2025-03-25 19:11 | ED_ITS ---
HPI - SOB/Dyspnea General Chief Complaint: Shortness of Breath/Dyspnea Stated Complaint: Heart Palpitations sent by PCP Time Seen by Provider: 03/25/25 18:59 Source: patient and family Mode of arrival: Ambulatory History of Present Illness HPI Narrative: 84-year-old gentleman history of hypertension, dyslipidemia, chronic atrial fibrillation on anticoagulation, congestive heart failure, moderate aortic stenosis, and asthma, presents with shortness of breath dyspnea on exertion walking up a flight of stairs this morning. He just also came back from a cruise ship where he has a weight gain of 10 lb and has noticed had his legs have gotten more swollen especially the left leg. He does take Lasix as needed and has only taking it twice this past week. He denies chest pain cough runny nose sore throat fever chills body aches. Other than what is stated 14 point review of system is Related Data Home Medications Medication Instructions Recorded Confirmed cholecalciferol (vitamin D3) 50 2,000 unit PO DAILY 04/13/19 02/01/25 mcg (2,000 unit) capsule imiquimod 5 % topical cream packet 1 applictn topical 2XW basal cell 09/20/20 02/01/25 carcinoma spironolactone 25 mg tablet 25 mg PO DAILY 10/28/24 02/01/25 losartan 50 mg tablet 50 mg PO DAILY 01/03/25 02/01/25 Previous Rx's Medication Instructions Recorded albuterol sulfate 90 mcg/actuation 2 puff inhalation Q4-6H PRN 12/23/22 aerosol inhaler wheezing, SOB, cough #6.7 grams apixaban 5 mg tablet (Eliquis) 5 mg PO BID atrial fibrillation 01/05/24 #180 tabs atorvastatin 40 mg tablet 40 mg PO BEDTIME 01/05/24 Hypercholesterolemia #90 tabs cyclobenzaprine 5 mg tablet 5 mg PO TID PRN muscle spasm #90 01/05/24 tabs furosemide 40 mg tablet See Rx Instructions PO QAM #30 tabs 01/05/24 omeprazole 40 mg capsule,delayed 40 mg PO DAILY #90 caps 01/20/25 release dutasteride 0.5 mg capsule 0.5 mg PO DAILY #90 caps 02/28/25 Allergies Allergy/AdvReac Type Severity Reaction Status Date / Time No Known Drug Allergies Allergy Verified 02/01/25 10:55 Review of Systems Review of Systems ROS Unobtainable: All systems reviewed & are unremarkable except as noted in HPI and below Patient History Medical History (Updated 03/25/25 @ 22:29 by Jose Daniel Ramos DO) Moderate aortic stenosis Mild intermittent asthma, uncomplicated Heart failure with preserved ejection fraction (~02/2020) Chronic atrial fibrillation (~02/2020) Paroxysmal atrial fibrillation Spermatocele BPH loc w urin obs/LUTS Osteoarthrosis involving more than one site Lumbar spondylolysis Injury of right Achilles tendon Basal cell carcinoma GERD (gastroesophageal reflux disease) Hyperlipidemia Balance problem History of fall History of seasonal allergies History of asthma Hypertension Malignant melanoma in situ History of urinary retention Family history of prostate cancer Coronary heart disease Arthritis Chronic anticoagulation Right ventricular dilation Atrial dilatation, bilateral Tricuspid regurgitation Mitral regurgitation Deviated septum Balance problem Vision disorder Acne (~1953) Asthma (~1988) Seasonal allergies (~1955) Abnormal chest x-ray (~2005) Shoulder pain (~1999) Fractures (~1966) Measles (~1944) Chicken pox (~1944) Hearing loss (~2008) Cataracts, bilateral Benign prostatic hyperplasia (~2006) Hemorrhoid (~1984) Colon polyps (~1986) Hypertension (~2005) Surgical History (Updated 02/01/25 @ 11:12 by Jose Daniel Bautista MD) [place] teeth removed (11/10/1954) History of vasectomy History of circumcision Anesthesia Status post right knee replacement (~2001) Status post left knee replacement (~2000) Status post right rotator cuff repair (~1999) S/P TURP (~2008) History of appendectomy (~1943) History of hemorrhoidectomy Skin cancer, basal cell (~1977) Family History Father Prostate cancer Hyperlipidemia Hypertension Mother Past heart attack Coronary artery disease Hyperlipidemia Hypertension Brother Leukemia Brother Testicular cancer Sister Stroke Family/Other ARDS (adult respiratory distress syndrome) Social History marital status: number of children: 3 household members: spouse occupational status: previously employed Smoking Status: Never smoker Tobacco: How many years used: 23 second hand exposure: No alcohol intake: current substance use type: does not use caffeine: No Smoking Status: Never smoker alcohol intake frequency: 0-2 drinks per day Alcohol type: wine Exam Narrative Exam Narrative: GENERAL: [84] year old patient appears stated age. Well-developed patient, in mild distress. HEAD: Atraumatic. Normocephalic. EYES: Pupils equal round and reactive. Extraocular motions intact. No scleral icterus. No injection or drainage. ENT: Nose without bleeding, purulent drainage. Throat without erythema, tonsillar hypertrophy or exudate. Airway patent. NECK: Trachea midline. Non tender CARDIOVASCULAR: Irregularly irregular and rhythm. Systolic 2/6 murmurs, gallops, or rubs. RESPIRATORY: Faint crackles at bases GASTROINTESTINAL: Abdomen soft, non-tender, nondistended. EXTREMITIES:+1 edema b/l l/e. LLE calf girth > RLE calf girth nonttp Patient: Zoey Singletary MR#: [id number] : 06/20/1986 Acct:[id number] Age/Sex: 38 / F Date of Service: 03/25/25 Loc: ED Accession Number: [id number] Procedure: XR chest 1V Ordering Provider: Britney Harvey D.O. PROCEDURE: XR CHEST 1V INDICATIONS: Chest Pain TECHNIQUE: One view of the chest was acquired. COMPARISON: [facility], CR, XR CHEST 1V, 02/02/2024, 21:06. [facility], CR, XR CHEST 1V, 07/03/2023, 3:12. FINDINGS: Surgical changes and devices: None. Lungs and pleura: Lungs are clear. No pleural effusions or pneumothorax. Mediastinum: Mediastinal contours appear normal. Heart size is normal. Bones and chest wall: No suspicious bony lesions. Overlying soft tissues appear unremarkable. IMPRESSION: No acute cardiopulmonary abnormality is seen. BACK: Nontender without deformity or crepitance. No flank tenderness. NEURO: AOx3. SKIN: No rash or erythema of visible areas Initial Vital Signs Initial Vital Signs: Vital Signs Temperature 98.0 F 03/25/25 17:46 Pulse Rate 74 03/25/25 17:46 Respiratory Rate 19 03/25/25 17:46 Blood Pressure 204/114 H 03/25/25 17:46 Pulse Oximetry 97 03/25/25 17:46 Oxygen Delivery Method Room Air 03/25/25 17:46 Course Orders Ordered: ED Orders 03/25/25 17:56 XR chest 1V Stat EKG-12 Lead Stat Measure peak expiratory flow STAT RT Consult Eval and Treat STAT 03/25/25 18:08 Complete Blood Count AUTO DIFF Stat Comprehensive Metabolic Panel Stat Lactate (Lactic Acid) Stat NT-proBNP (BNP-Adult 18+) Stat Prothrombin Time INR Stat Troponin I Stat Discontinued Medications Furosemide (Furosemide 40 Mg/4 Ml Vial) 40 mg IV NOW ONE Stop: 03/25/25 19:17 Last Admin: 03/25/25 19:25 Dose: 40 mg Documented By: Vital Signs Vital signs: Vital Signs - 8 hr 03/25/25 17:46 03/25/25 18:47 03/25/25 18:50 Temperature 98.0 F Pulse Rate 74 72 72 Respiratory Rate 19 15 Blood Pressure 204/114 H 189/97 H Pulse Oximetry 97 97 97 Oxygen Delivery Method Room Air Room Air 03/25/25 18:52 03/25/25 18:52 03/25/25 19:00 Temperature Pulse Rate 69 Respiratory Rate 16 Blood Pressure 180/108 H 189/108 H Pulse Oximetry 97 Oxygen Delivery Method 03/25/25 19:00 03/25/25 19:30 03/25/25 19:30 Temperature Pulse Rate 73 74 Respiratory Rate 15 17 Blood Pressure 208/94 H Pulse Oximetry 97 98 Oxygen Delivery Method Room Air 03/25/25 20:00 03/25/25 20:00 03/25/25 20:30 Temperature Pulse Rate 70 Respiratory Rate 17 Blood Pressure 186/109 H 190/95 H Pulse Oximetry 97 Oxygen Delivery Method 03/25/25 20:30 03/25/25 20:36 03/25/25 20:36 Temperature Pulse Rate 71 70 Respiratory Rate 18 18 Blood Pressure 179/97 H Pulse Oximetry 96 96 Oxygen Delivery Method 03/25/25 20:55 03/25/25 20:55 03/25/25 21:00 Temperature Pulse Rate 74 Respiratory Rate 14 Blood Pressure 174/90 H 178/107 H Pulse Oximetry 96 Oxygen Delivery Method 03/25/25 21:00 03/25/25 21:07 03/25/25 21:07 Temperature Pulse Rate 69 68 Respiratory Rate 12 13 Blood Pressure 175/101 H Pulse Oximetry 96 98 Oxygen Delivery Method Room Air MDM - SOB/Dyspnea Lab Data 03/25/25 18:08 03/25/25 18:08 Labs: Lab Results 03/25/25 Range/Units 18:08 WBC 4.6 (4.5-11.0) X10^3/uL RBC 4.34 L (4.5-5.9) X10^6/uL Hgb 13.9 (13.5-17.5) g/dL Hct 41.7 (41-53) % MCV 96.1 (80-100) fL MCH 32.0 (26-34) PG MCHC 33.3 (30-36) % RDW 14.6 (11.6-14.8) % Plt Count 153 (150-400) X10^3/uL Neut % (Auto) 59.2 (50-75) % Lymph % (Auto) 22.1 L (25-40) % [place] % (Auto) 14.1 H (3-14) % Eos % (Auto) 3.8 (2-4) % Baso % (Auto) 0.8 (0-2) % Neut # (Auto) 2700 (5963-8475) /uL Lymph # (Auto) 1000 L (6251-8325) /uL [place] # (Auto) 700 (0-900) /uL Eos # (Auto) 200 (0-450) /uL Baso # (Auto) 0 (0-100) /uL PT 14.2 H (9.4-12.5) SECONDS INR 1.3 (0.9-1.3) Sodium 140 (137-145) mmol/L Potassium 3.8 (3.4-5.1) mmol/L Chloride 105 (98-107) mmol/L Carbon Dioxide 28 (22-32) mmol/L BUN 19 (9-20) mg/dL Creatinine 0.91 (0.66-1.25) mg/dL Estimated GFR > 60 (>60) mL/min BUN/Creatinine Ratio 20.9 (6-22) Glucose 92 (70-99) mg/dL Lactate 0.9 (0.7-2.1) mmol/L Calcium 9.0 (8.4-10.2) mg/dL Total Bilirubin 1.3 (0.2-1.3) mg/dL AST 40 (17-59) IU/L ALT 43 (<50) IU/L Alkaline Phosphatase 82 (38-126) U/L Troponin I 0.014 (0.01-0.034) ng/mL NT-Pro-B Natriuret Pep 4260 H (<450) pg/mL Total Protein 6.6 (6.3-8.2) g/dL Albumin 3.9 (3.5-5.0) g/dL Globulin 2.7 (1.7-4.1) g/dL Albumin/Globulin Ratio 1.4 (1.0-2.8) Imaging Data Chest x-ray: Radiologist's Impression: [address] [address] XRay Report Signed Patient: Ricardo Austin MR#: [id number] : 1940 Acct:[id number] Age/Sex: 84 / M Date of Service: 03/25/25 Loc: ED Accession Number: [id number] Procedure: XR chest 1V Ordering Provider: Britney Harvey D.O. PROCEDURE: XR CHEST 1V INDICATIONS: Shortness of breath TECHNIQUE: One view of the chest was acquired. COMPARISON: [facility], CR, XR CHEST 2V, 05/03/2024, 12:46. [facility], CR, XR CHEST 2V, 03/23/2024, 10:15. FINDINGS: Surgical changes and devices: None. Lungs and pleura: Peribronchial cuffing. Mediastinum: Mediastinal contours appear normal. Heart size is enlarged. Bones and chest wall: No suspicious bony lesions. Overlying soft tissues appear unremarkable. IMPRESSION: Peribronchial cuffing, probably early pulmonary edema in this setting. ECG Data Interpretation: Afib HR 77 CO undetermined QRS [address]-t wave chagne Unchanged from 02/11/20 [facility] Narrative Medical decision making narrative: All lab work, vital signs, nurse triage note, medication list, chest x-ray and all previous ER visits all reviewed. Patient given Lasix 40 mg IV here x1. Differential diagnosis includes CHF pneumonia STEMI NSTEMI unstable angina PE. DC home to take Lasix 40 mg once daily for 3 days And to follow up with PCP in 1 week. chest x-ray show peribronchial cuffing promptly early pulmonary edema in the setting. BNP was 4260, troponin normal, and kidney function normal. Discharge Plan Departure Patient Disposition: Home Clinical Impression: CHF (congestive heart failure) Qualifiers: Heart failure type: diastolic Heart failure chronicity: acute Qualified Code(s): I50.31 - Acute diastolic (congestive) heart failure Instructions: DI for Heart Failure Activity Restrictions/Additional Instructions: Return with new or worsening symptoms. Take Lasix 40 mg once daily for 3 days. Follow up with PCP in 1 week for re-evaluation Prescriptions: No Action cholecalciferol (vitamin D3) 2,000 unit capsule 2,000 unit PO DAILY omeprazole 40 mg capsule,delayed release(DR/EC) 40 mg PO DAILY Qty: 90 3RF dutasteride 0.5 mg capsule 0.5 mg PO DAILY Qty: 90 1RF albuterol sulfate 90 mcg/actuation HFA aerosol inhaler 2 puff INHALATION Q4-6H PRN (Reason: wheezing, SOB, cough) Qty: 6.7 2RF losartan 50 mg tablet 50 mg PO DAILY imiquimod 5 % cream in packet 1 applictn TOP 2XW Eliquis 5 mg tablet 5 mg PO BID Qty: 180 3RF atorvastatin 40 mg tablet 40 mg PO BEDTIME Qty: 90 3RF Rx Instructions: Take 1 tablet by mouth at bedtime for hypercholesterolemia cyclobenzaprine 5 mg tablet 5 mg PO TID PRN (Reason: muscle spasm) Qty: 90 0RF furosemide 40 mg tablet See Rx Instructions PO QAM Qty: 30 3RF Patient Comments: takes every 2-3 days depends on swelling in ankles Rx Instructions: Take 1/2 to 1 tab by mouth daily (each morning) for lower extremity swelling spironolactone 25 mg tablet 25 mg PO DAILY Referrals: Jose Daniel Bautista MD [Primary Care Provider] - Stand Alone Forms: Patient Portal/API/Survey
[2025-03-25] MEDS: FUROSEMIDE 40 MG/4 ML VIAL IV (19:25)
== END 2025-03-25 22:36 | disposition home or self-care (01) ==
PROVIDERS: Emergency Medicine; Emergency Provider Family Medicine; PCP Internal Medicine
DX: I50.31 Acute diastolic (congestive) heart failure (principal); I48.91 Unspecified atrial fibrillation; Z79.01 Long term (current) use of anticoagulants
CPT/HCPCS: 36415; 71045; 80053; 83605; 83880; 84484; 85025; 85610; 93005; 96374; 99284; J1938

== ENCOUNTER → 2025-09-19 13:35 | Outpatient (CLI) | payer MEDICARE, OTHER, SELFPAY | PROVIDERS: PCP Internal Medicine; Referring Provider Internal Medicine Cardiovascular Disease; Visit Provider Internal Medicine Cardiovascular Disease | DX: I08.2 Rheumatic disorders of both aortic and tricuspid valves (principal) | CPT/HCPCS: 93306 ==

== ENCOUNTER → 2025-09-30 11:38 | Outpatient (CLI) | payer MEDICARE, OTHER, SELFPAY ==
[2025-09-30 13:06] LABS: Add Manual Diff / Slide Review NO; Hematocrit 44.1 % (41-53); Hemoglobin 14.9 g/dL (13.5-17.5); Lymphocytes Absolute Auto 700 /uL (1100-4500); Mean Corpuscular HGB Conc 33.9 % (30-36); Mean Corpuscular Hemoglobin 32.1 PG (26-34); Mean Corpuscular Volume 94.7 fL (80-100); Platelet Count 172 X10^3/uL (150-400)
[2025-09-30 13:25] LABS: Alanine Aminotransferase 28 IU/L (<50); Albumin 4.0 g/dL (3.5-5.0); Albumin Globulin Ratio 1.5 (1.0-2.8); Alkaline Phosphatase 62 U/L (38-126); Blood Urea Nitrogen 20 mg/dL (9-20); Calcium 9.2 mg/dL (8.4-10.2); Carbon Dioxide 24 mmol/L (22-32); Chloride 106 mmol/L (98-107); Cholesterol 153 mg/dL (140-199); Estimated Glomerular Filt Rate > 60 mL/min (>60); Globulin 2.6 g/dL (1.7-4.1); Glucose 128 mg/dL (70-99); HDL Cholesterol 84 mg/dL (40-60); HEMOLYSIS < 15 (0-50); Potassium 4.5 mmol/L (3.4-5.1); Sodium 140 mmol/L (137-145); Total Protein 6.6 g/dL (6.3-8.2); Triglycerides 57 mg/dL (35-150)
[2025-09-30 13:34] LABS: NT-proBNP (BNP-Adult 18+) 2980 pg/mL (<450)
[2025-09-30 13:55] LABS: Prostate Specific Antigen 0.163 ng/mL (0.10-4.00)
== END ==
PROVIDERS: Urology; PCP Internal Medicine; Referring Provider Internal Medicine Cardiovascular Disease; Visit Provider Internal Medicine Cardiovascular Disease
DX: R97.20 Elevated prostate specific antigen [PSA] (principal); I50.32 Chronic diastolic (congestive) heart failure; I10 Essential (primary) hypertension; E78.00 Pure hypercholesterolemia, unspecified; I48.20 Chronic atrial fibrillation, unspecified; Z79.01 Long term (current) use of anticoagulants
CPT/HCPCS: 36415; 80053; 80061; 83880; 84153; 85025